=== PATIENT | female | born 1985 | race Caucasian/White ===

== ENCOUNTER → 2018-07-24 19:14 | Outpatient (CLI) | payer BC, SELFPAY ==
[2018-07-27 12:52] LABS: HPV Reflexed? NOT INDICATED
== END ==
PROVIDERS: Visit Provider Obstetrics & Gynecology
DX: Z12.4 Encounter for screening for malignant neoplasm of cervix (principal)
CPT/HCPCS: 88175; G0145

== ENCOUNTER → 2020-05-18 | Outpatient (CLI) | payer BC, SELFPAY ==
[2020-05-18 14:46] VITALS: BMI 30.1
[2020-05-18 19:00] LABS: Amphetamine Urine VISTA NEGATIVE (<1000 ng/mL); Barbiturate Urine VISTA NEGATIVE (< 200 ng/mL); Benzodiazepine Urine VISTA NEGATIVE (< 200 ng/mL); Cocaine Urine VISTA NEGATIVE (< 300 ng/mL); Ecstacy Urine VISTA NEGATIVE (< 500 ng/mL); Methadone Urine VISTA NEGATIVE (< 300 ng/mL); PCP Urine VISTA NEGATIVE (< 25 ng/mL); THC Urine VISTA NEGATIVE (< 50 ng/mL); Vista UDS pH Range 6
[2020-05-21 07:07] LABS: Chlamydia By Nucleic Acid AMP Negative (Negative)
[2020-05-21 08:25] LABS: Gonococcus By Nucleic Acid AMP Negative (Negative)
== END | disposition home or self-care (01) ==
LOC: LABSPEC 16:50
PROVIDERS: Referring Provider Obstetrics & Gynecology; Visit Provider Obstetrics & Gynecology
DX: Z34.90 Encounter for supervision of normal pregnancy, unspecified, unspecified trimester (principal)
CPT/HCPCS: 80307; 87086; 87088; 87491; 87591

== ENCOUNTER → 2020-06-08 16:18 | Outpatient (CLI) | payer BC, SELFPAY ==
[2020-05-18 14:46] VITALS: BMI 30.1
[2020-06-08 17:11] LABS: Absolute Neutrophil Count 6.4 X10^3/uL (2.0-7.7); Basophil# 0.06 X10^3/uL; Basophil% 0.6 % (0-1); Eosinophil# 0.19 X10^3/uL; Hematocrit 40.7 % (37-47); Hemoglobin 13.5 g/dL (12.0-15.0); Mean Corp Hgb Conc 33.2 g/dL (32-36); Mean Corpuscular Hgb 30.4 pg (27.0-32.0); Mean Corpuscular Volume 91.7 fL (81-99); Mean Platelet Vol. 10.4 fl (6.2-12.0); Monocyte# 0.81 X10^3/uL; Monocyte% 8.5 % (0-10); NRBC Flagged by Analyzer 0 % (0-5); Neutrophil # 6.36 X10^3/uL (2.7-7.7); Neutrophil % 66.6 % (47-70); Platelet Count 240 K/mm3 (150-450); RBC Distribution Width CV 11.7 % (11.6-14.6); RBC Distribution Width SD 39.2 fl (35.1-43.9); Red Blood Count 4.44 M/mm3 (4.2-5.4); White Blood Count 9.6 K/mm3 (4.4-11.0)
[2020-06-08 17:21] LABS: NATERA MAILED SPECIMEN
[2020-06-09 09:45] LABS: HIV - WCH Non-Reactive (Nonreactive); Hepatitis B Surface Antigen Non-Reactive (Nonreactive); Hepatitis C Antibody Non-Reactive (Nonreactive); Rubella IgG 6.2 IU/mL
[2020-06-11 04:30] LABS: Rapid Plasmin Reagin (RPR) NONREACTIVE (NONREACTIVE)
== END ==
PROVIDERS: Referring Provider Obstetrics & Gynecology; Visit Provider Obstetrics & Gynecology
DX: Z34.81 Encounter for supervision of other normal pregnancy, first trimester (principal)
CPT/HCPCS: 36415; 85025; 86592; 86703; 86762; 86803; 86850; 86900; 86901; 87340

== ENCOUNTER → 2020-08-06 15:27 | Outpatient (CLI) | payer BC, SELFPAY ==
[2020-07-16 09:00] VITALS: BMI 30.7
--- NOTE | 2020-08-06 15:31 | US_ITS ---
STUDY: SECOND AND THIRD TRIMESTER OBSTETRICAL ULTRASOUND REASON FOR EXAM: Female, 35 years old ANATOMY LMP: 03/18/2020 TECHNIQUE: Transabdominal TECHNICAL QUALITY: Adequate. PRIOR ULTRASOUND: None. FINDINGS: There is a single intrauterine fetus. The fetus is in a variable presentation. There is demonstrated cardiac activity with a heart rate of 166 bpm. There is a normal amniotic fluid volume. The largest amniotic fluid pocket measures 2.8 cm x 3.9 cm. The amniotic fluid index (EULALIO) is within normal limits. The placenta is posterior in location and is not low lying. There are Grade 1 placental changes. The cervix measures 4.2 cm in length. The bilateral adnexal regions are normal. There is a 3.1 cm x 3.3 cm x 2.1 cm fibroid along the anterior aspect of the body of the uterus. BIOMETRY: BPD: 4.81 cm: 20 weeks, 3 days HC: 18.8 cm: 21 weeks, 0 days AC: 15.69 cm: 20 weeks, 5 days FL: 3.41 cm: 20 weeks, 4 days CI: 75% FL/BPD: 71% FL/HC: FL/AC: 21.7% HC/AC: 1.2 age by current US: 20 weeks, 3 days. JAYDA by current US: 12/21/2020. Estimated weight: 376 grams, +/- 56 grams, 78 %. Age by LMP: 20 weeks, 1 days. JAYDA by LMP: 12/23/2020. ANATOMY: Gender: Male Cranium: Normal lateral ventricles. Normal choroid plexus. Normal cerebellum. Normal cisterna magna. Normal face, nose and lips. Chest: Normal 4-chamber heart. Abdomen/Pelvis: Normal diaphragm. Normal stomach. Normal abdominal wall. Normal cord insertion. Normal 3 vessel cord. Normal kidneys. Normal bladder. Spine: Normal cervical spine. Normal thoracic spine. Normal lumbar spine. Normal sacrum. Extremities: Normal bilateral upper extremities. Normal bilateral lower extremities. US/OB Anatomy Scan IMPRESSION: Single life intrauterine gestation with a mean gestational age of 20 weeks and 3 days. Electronically Signed: Amos Quiroz, at 9:08 EST , Service support ,
== END ==
PROVIDERS: Referring Provider Obstetrics & Gynecology; Visit Provider Obstetrics & Gynecology
DX: Z34.90 Encounter for supervision of normal pregnancy, unspecified, unspecified trimester (principal)
CPT/HCPCS: 76805

== ENCOUNTER → 2020-09-14 08:15 | Outpatient (CLI) | payer BC, SELFPAY ==
[2020-08-19 11:02] VITALS: BMI 31.6
[2020-09-14 08:53] LABS: Absolute Lymphocyte Count 1.38 X10^3/uL (0.83-4.51); Absolute Neutrophil Count 6.8 X10^3/uL (2.0-7.7); Basophil# 0.05 X10^3/uL; Basophil% 0.5 % (0-1); Eosinophil# 0.07 X10^3/uL; Eosinophils% 0.8 % (0-5); Hematocrit 38.4 % (37-47); Hemoglobin 13.4 g/dL (12.0-15.0); Lymphocyte # 1.38 X10^3/ul (4.0); Lymphocyte % 15.1 % (19-41); Mean Corp Hgb Conc 34.9 g/dL (32-36); Mean Corpuscular Hgb 32.1 pg (27.0-32.0); Mean Corpuscular Volume 92.1 fL (81-99); Monocyte# 0.74 X10^3/uL; Monocyte% 8.1 % (0-10); NRBC Flagged by Analyzer 0 % (0-5); Neutrophil # 6.84 X10^3/uL (2.7-7.7); Neutrophil % 75.2 % (47-70); Platelet Count 213 K/mm3 (150-450); RBC Distribution Width CV 12.2 % (11.6-14.6); RBC Distribution Width SD 41.4 fl (35.1-43.9); Red Blood Count 4.17 M/mm3 (4.2-5.4); White Blood Count 9.1 K/mm3 (4.4-11.0)
[2020-09-14 09:13] LABS: Glucose Challenge Gest 1H 50g 102 mg/dL (70-140)
== END ==
PROVIDERS: Nurse Practitioner Women's Health; Referring Provider Obstetrics & Gynecology; Visit Provider Obstetrics & Gynecology
DX: Z34.90 Encounter for supervision of normal pregnancy, unspecified, unspecified trimester (principal); Z13.1 Encounter for screening for diabetes mellitus
CPT/HCPCS: 36415; 82950; 85025

== ENCOUNTER → 2020-11-25 | Outpatient (CLI) | payer BC, SELFPAY ==
[2020-11-25 16:02] VITALS: BMI 35.1
== END | disposition home or self-care (01) ==
LOC: LABSPEC 16:55
PROVIDERS: Referring Provider Obstetrics & Gynecology; Visit Provider Obstetrics & Gynecology
DX: Z34.90 Encounter for supervision of normal pregnancy, unspecified, unspecified trimester (principal)
CPT/HCPCS: 87077; 87081; 87186

== ENCOUNTER 2020-12-29 08:00 | Inpatient (IN) | payer BC, SELFPAY ==
[2020-11-30 16:04] VITALS: BMI 35.3
[2020-12-28 11:55] VITALS: BMI 36.0
[2020-12-29] VITALS (40 sets, daily range): BP systolic 78–164; BP diastolic 41–92; PULSE 70–136; RESP 16; TEMP 35.9–37.9; O2SAT 92–100; BMI 35.9
[2020-12-29] MEDS: Lactated Ringers 1,000 ML 50 ML IV ×2 (08:40→11:10)
[2020-12-29] MEDS: Lactated Ringers 500 ML 999 ML IV ×2 (08:45→09:54)
[2020-12-29 08:46] LABS: Absolute Lymphocyte Count 0.81 X10^3/uL (0.83-4.51); Absolute Neutrophil Count 12.2 X10^3/uL (2.0-7.7); Basophil# 0.03 X10^3/uL; Basophil% 0.2 % (0-1); Hematocrit 39.3 % (37-47); Hemoglobin 13.6 g/dL (12.0-15.0); Lymphocyte # 0.81 X10^3/ul (4.0); Mean Corp Hgb Conc 34.6 g/dL (32-36); Mean Corpuscular Hgb 32.3 pg (27.0-32.0); Mean Corpuscular Volume 93.3 fL (81-99); Mean Platelet Vol. 10.7 fl (6.2-12.0); Monocyte% 2.2 % (0-10); NRBC Flagged by Analyzer 0 % (0-5); Neutrophil # 12.19 X10^3/uL (2.7-7.7); Neutrophil % 91.2 % (47-70); Platelet Count 203 K/mm3 (150-450); RBC Distribution Width CV 12.2 % (11.6-14.6); RBC Distribution Width SD 42.1 fl (35.1-43.9); Red Blood Count 4.21 M/mm3 (4.2-5.4); White Blood Count 13.4 K/mm3 (4.4-11.0)
[2020-12-29] MEDS: fentaNYL-bupivacaine (epidural) 100 ML BAG EPIDURAL ×3 (09:47→18:26)
--- NOTE | 2020-12-29 10:56 | PCM.HPOB.BLA ---
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 genetic low risk, anatomy normal (6) Rubella non-immune status, antepartum Status: Acute Comment: MMR PP (7) Supervision of normal Status: Acute Qualifiers: Comment: PRR JAYDA 12/23/20, boy Gaurav Asad History and Physical Date of Admission: 12/29/20 Intake Vital Signs 12/28/20 Height 6 ft 1 in 12/28/20 Weight: 273 lb 12/28/20 BMI 36.0 12/28/20 BP 124/82 H Intake Visit Reasons: 41 WK OB, pt coming at 11:40am Chief Complaint: est ob [employer] Supervisor Required: No Is patient in pain?: No Allergies Sulfa (Sulfonamide Antibiotics) Allergy (Mild, Verified 12/28/20 11:56) rash Medications cholecalciferol (vitamin D3) 25 mcg (1,000 unit) capsule 25 mcg PO DAILY 05/18/20 [History Confirmed 12/28/20] multivitamin 1 tab PO DAILY 05/18/20 [History Confirmed 12/28/20] mv-min-vit C 250 fh-brugfl-olbkw HCl-herb 124 12.5 mg chewable tablet mg PO 05/18/20 [History Confirmed 12/28/20] Last Menstral Period: 03/18/20 Zika: Zika virus screening: Negative : No PFSH PFSH Medical History Rosacea (Inactive) Surgical History S/P eye surgery (Resolved) S/P tonsillectomy (Resolved) Family History Grandmother Pancreatic cancer Myocardial infarction Grandfather CVA (cerebral vascular accident) Myocardial infarction Social History (Updated 12/28/20 @ 12:[address] Ashia Gonzales MD) Smoking Status: Never smoker alcohol intake: never substance use type: does not use caffeine: No what type of physical activity do you participate in: walking frequency: 3-4 times per week seatbelt use: always do you feel safe at home: Yes additional social history: - [employer] Patient works at [employer] Pregancy History 1 Elective abortions Hx Para Spontaneous abortions Hx # Term Pregnancies Ectopic pregnancies Hx # Pregnancies Multiple births # of living children HPI 41 WK OB, pt coming at 11:40am: Details: JAGDEEP MURPHY is a 35 year old who presents IAL 5 cm dilated, epidural in and pcn started. OB Visit JAYDA Calculator Estimated Delivery Date Method Current WG Current Estimate 12/23/20 LMP (Certain) 40w 5d Other Estimates 12/24/20 Ultrasound #1 40w 4d Expected Delivery Route/Plan Labor Preferences- CB/BF classes: yes labor support person: Asad labor intervention preferences: tub pain management options preferred: epidural cut cord/dad catch: cord : yes PP control planned:NFP discussed possible routes of delivery and associated risks: discussed possible delivery modalities and possible indications for each including R/B/A of , VAVD, FAVD, and CS. questions answered. special requests: [] Specific Issue/Plans flu vaccine: given tdap vaccine: given rhogam: na LARC form signed: yes movement and labor precautions reviewed. Problem list reviewed and updated with the most current plan of care details and appropriate orders placed. Relevant counseling for the gestational age provided. Continue routine care and follow up unless otherwise noted in visit notes/problem list details Initial Weight: Not Recorded Date EGA Weight BP Urine Prot Glucose FHR FuHt Pres Dilation Effaced St Visit Note 05/18/20 8w 5d 228 lb 6 oz 120/74 160 SM- CRL- SM- CRL- 2cm 06/16/20 12w 6d 232 lb 124/80 Negative Negative 160 MH-no VB, LOF. Nausea improved. Brief US confirmed active IUP. Flu vaccine. Anatomy US ordered. NIPT pending. 07/15/20 17w 0d 233 lb 114/70 Negative Negative 160 GP - no cramping or bleeding. Anatomy scan ordered today. 08/19/20 22w 0d 239 lb 8 oz 114/60 Negative Negative 154 MH-NO VB, LOF. Good FM. 09/14/20 25w 5d 243 lb 116/68 Negative Negative 150 27 GP - no LOF, VB, DFM, ctx. 1h GCT and CBC normal. 09/29/20 27w 6d 251 lb 120/80 Negative Negative 140 28 SM- no vb lof good fm no regular ctx tdap 10/13/20 29w 6d 255 lb 4 oz 116/60 Negative Negative 142 29 MH-No VB, LOF. Good FM. Larc. 10/26/20 31w 5d 256 lb 130/82 Negative Negative 145 32 Sm- no vb lof good fm no regular ctx some right hip and back pain 11/09/20 33w 5d 261 lb 4 oz 112/82 Negative Negative 155 33 GP - no LOF, VB, DFM, ctx. Denies complaints. 11/25/20 36w 0d 266 lb 106/60 Negative Negative 145 36 Cephalic 1 50 -2 GP - no LOF, VB, DFM, ctx. GBS done today. Discussed routes of delivery. 11/30/20 36w 5d 268 lb 120/68 Negative Negative 145 37 Cephalic SM- no vb lof good fm no regular ctx 12/07/20 37w 5d 268 lb 120/72 Negative Negative 150 37 Cephalic 1 50 -2 GP - no LOF, VB, DFM, ctx. Denies complaints. 12/14/20 38w 5d 267 lb 122/76 Negative Negative 145 38 Cephalic 1 SM- no vb lof good fm no regular ctx 12/21/20 39w 5d 273 lb 4 oz 122/70 Negative Negative 150 39 Cephalic GP - no LOF, VB, DFM, ctx. Denies complaints. 12/28/20 40w 5d 273 lb 124/82 Negative Negative 140 41 Cephalic 3 70 -1 SM- no vb lof good fm plan IOL 7 am if no spontnaoues labor ACOG First Trimester First Trimester: Desire for , Alcohol, Tobacco Cessation, Illicit/Recreational Drug/Substance Use, Intimate Partner Violence, Barriers to care, Unstable Housing, Communication Barriers, Environmental/Work Hazards, Anticipated Course of Care, Toxoplasmosis Precations, Use of Any medications, Sexual activity, Exercise, Dental Care, Sauna/Hot tub use, Seat Belt use, Childbirth classes/Hospital facilities, , Travel, Indications for US and Screening for Aneuploidy Second Trimester Second Trimester: Signs and Symptoms of Labor, Selecting a care provider, Reproductive Life Planning, Care Planning, Depression/Anxiety and Intimate Partner Violence; discussed Tobacco Cessation Diagnostics Diagnostics Diagnostics Glucose 1 Hr 50 gm 102 mg/dL (70-140) 09/14/20 Hgb 13.4 g/dL (12.0-15.0) 09/14/20 Hct 38.4 % (37-47) 09/14/20 Details: HIV: Urine Culture: Sequential Screen: NIPT Screen: ROS Const Reports system reviewed and no additional complaints, except as docu Card Reports system reviewed and no additional complaints, except as docu Resp Reports system reviewed and no additional complaints, except as docu GI Reports system reviewed and no additional complaints, except as docu, Reports nausea Reports system reviewed and no additional complaints, except as docu Musc Reports system reviewed and no additional complaints, except as docu Exam Const General: cooperative, healthy appearing, comfortable, anxious HENMT Head: normal to inspection Nose: external nose normal Face and sinus: normal facial exam Neck Neck: normal visual inspection, full ROM, no lymphadenopathy Thyroid: thyroid normal Chest Chest palpation & inspection: normal inspection of the chest Resp Effort & Inspection: normal respiratory effort GI Inspection: normal to inspection Palpation: soft, other (gravid uterus) Other: vertex and appropriate size for gestational age Other: Cervical Exam: Extrem General: pedal edema Results POC Urinalysis 2 Dip (Clinic) Office Urine Glucose Negative Last Edit by Meri Mistry on 12/28/20 12:00 Office Urine Protein Negative Last Edit by Meri Mistry on 12/28/20 12:00 Assessment & Plan Problems 1. Positive GBS test B95.1 pcn in labor 2. 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 Z34.90 carrier, genetic, and ntd screening discussed. genetic low risk, anatomy normal 5. Supervision of normal Z34.90 PRR JAYDA 12/23/20, boy Gaurav Asad Plan Patient presents IAL plan management for arom clear fluid Pain management: plans epidural. GBS positive- pcn. Management of any complications: none I have reviewed the [facility] and made any clinically relevant updates. 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
[2020-12-29] MEDS: Oxytocin 30 units/NS 500 ml 30 UNITS/500 ML IV.SOLN IV (13:18)
[2020-12-29] MEDS: Lactated Ringers 1,000 ML 200 ML IV (16:00)
--- NOTE | 2020-12-29 19:11 | PCM.OPRPT ---
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 genetic low risk, anatomy normal (6) Rubella non-immune status, antepartum Status: Acute Comment: MMR PP (7) Supervision of normal Status: Acute Qualifiers: Comment: PRR JAYDA 12/23/20, boy Gaurav Asad Vaginal Delivery Maternal Presentation: Active Labor at 40 weeks 6 days in active labor Amniotic Membrane Rupture Type: Artificial Amniotic Fluid Description: Clear Final JAYDA: 12/23/20 Gestational age: 41 Weeks and 0 Days Date of Procedure: 12/29/20 Pre-Operative Diagnosis: In active labor Post-Operative Diagnosis: Same Surgery/ Procedure Performed: Spontaneous Vaginal Delivery Type of Anesthesia: Epidural Description of Procedure: Patient began pushing and delivered the head in the KAMAR presentation. The head was delivered atraumatically. The anterior and posterior shoulders delivered without complication followed by the rest of the infant and the infant was placed on the maternal abdomen. Delayed cord clamping was employed for approximately 60 seconds. Cord was clamped and cut and gentle traction was applied to the cord and the placenta delivered spontaneously immediately following it was noted to be intact with three-vessel cord. The perineum and vagina were inspected and noted to have 1/3 degree perineal laceration which was repaired in the usual fashion with 2-0 PDS and 3-0 Vicryl Rapide. EBL was 400 cc. Patient and infant tolerated delivery well. Presentation: KAMAR Placental Delivery Description: Spontaneous Placenta Disposition: [facility] Cord Vessel Description: 3 Vessels Cord Entanglement: None Estimated Blood Loss: 100 Infant A gender: Male Laceration: Perineal Extension/lac, 3rd degree Medications given after delivery: IV Pitocin Complications: None Multi Select Codes - Urinary/Genital Urinary/Genital CPT Codes: 02079 Vaginal Delivery [facility]
[2020-12-29] MEDS: 0.9% Saline Lock 10 ML Syringe IV (19:37)
[2020-12-29] MEDS: Ondansetron 4 MG/2 ML Vial IV (19:37)
[2020-12-29] MEDS: Oxytocin 30 units/NS 500 ml 30 UNITS/500 ML IV.SOLN 334 UNITS IV (19:58)
[2020-12-29] MEDS: Lactated Ringers 1,000 ML 999 ML IV ×2 (21:06→22:30)
[2020-12-29 21:24] LABS: Absolute Lymphocyte Count 0.72 X10^3/uL (0.83-4.51); Absolute Neutrophil Count 18.8 X10^3/uL (2.0-7.7); Basophil# 0.04 X10^3/uL; Basophil% 0.2 % (0-1); Eosinophils% 1.4 % (0-5); Hematocrit 31.8 % (37-47); Hemoglobin 10.8 g/dL (12.0-15.0); Lymphocyte # 0.72 X10^3/ul (4.0); Lymphocyte % 3.4 % (19-41); Mean Corpuscular Hgb 32.1 pg (27.0-32.0); Mean Corpuscular Volume 94.6 fL (81-99); Mean Platelet Vol. 10.9 fl (6.2-12.0); Monocyte# 1.23 X10^3/uL; Monocyte% 5.8 % (0-10); NRBC Flagged by Analyzer 0 % (0-5); Neutrophil # 18.81 X10^3/uL (2.7-7.7); Neutrophil % 88.6 % (47-70); Platelet Count 199 K/mm3 (150-450); RBC Distribution Width CV 12.2 % (11.6-14.6); RBC Distribution Width SD 42.2 fl (35.1-43.9); Red Blood Count 3.36 M/mm3 (4.2-5.4); White Blood Count 21.2 K/mm3 (4.4-11.0)
[2020-12-29 22:05] LABS: Lactic Acid 3.8 mmol/L (0.4-1.9)
[2020-12-30 01:21] LABS: Reflex Lactate? Y
--- NOTE | 2020-12-30 01:25 | PCM.PN.BLA ---
Progress Note patient had hypotension and tachycardia - ordered CBC and lactic acid, which are elevated- will provide fluid resuscitation and repeat lactic acid, afebrile and patient is asymptomatic, start antibiotics if shows signs of persistent sepsis STROKE Vital Signs/Narrative: Vital Signs Temp Pulse Resp BP BP Pulse Ox 12/29/20 23:53 97.5 F L 114 H 16 100/59 L 97 12/29/20 23:33 97.5 F L 118 H 100/59 L 97 12/29/20 22:50 98.1 F 12/29/20 22:14 114 H 90/54 L 12/29/20 21:59 116 H 92/51 L 12/29/20 21:47 118 H 91/50 L 12/29/20 21:29 133 H 86/54 L 12/29/20 21:26 130 H 84/53 L
[2020-12-30] MEDS: 0.9% Normal Saline 1,000 ML 999 ML IV ×2 (01:36→02:45)
[2020-12-30 04:30] VITALS: BP 118/59; PULSE 81; RESP 16; TEMP 36.3; O2SAT 100
[2020-12-30] MEDS: Naproxen 250 MG Tablet 500 MG PO ×2 (04:52→18:27)
[2020-12-30 05:08] LABS: Absolute Lymphocyte Count 1.15 X10^3/uL (0.83-4.51); Absolute Neutrophil Count 15.2 X10^3/uL (2.0-7.7); Basophil# 0.03 X10^3/uL; Basophil% 0.2 % (0-1); Eosinophil# 0.46 X10^3/uL; Eosinophils% 2.5 % (0-5); Hematocrit 26.2 % (37-47); Hemoglobin 8.7 g/dL (12.0-15.0); Lymphocyte # 1.15 X10^3/ul (4.0); Lymphocyte % 6.3 % (19-41); Mean Corp Hgb Conc 33.2 g/dL (32-36); Mean Corpuscular Hgb 32.1 pg (27.0-32.0); Mean Corpuscular Volume 96.7 fL (81-99); Mean Platelet Vol. 10.6 fl (6.2-12.0); Monocyte# 1.41 X10^3/uL; Monocyte% 7.7 % (0-10); NRBC Flagged by Analyzer 0 % (0-5); Neutrophil # 15.23 X10^3/uL (2.7-7.7); Neutrophil % 82.7 % (47-70); Platelet Count 159 K/mm3 (150-450); RBC Distribution Width CV 12.4 % (11.6-14.6); Red Blood Count 2.71 M/mm3 (4.2-5.4); White Blood Count 18.4 K/mm3 (4.4-11.0)
[2020-12-30 05:32] LABS: Lactic Acid 1.4 mmol/L (0.4-1.9)
--- NOTE | 2020-12-30 07:50 | PCM.PN.OB ---
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 genetic low risk, anatomy normal Supervision of normal (Acute) PRR JAYDA 12/23/20, boy Gaurav Asad Subjective: Patient doing well without complaints. Tolerating PO. Ambulating and voiding without difficulty. Breast feeding well. Denies chest pain, shortness of breath, calf pain/swelling, fevers, chills, lightheadedness. Vitals stable, labs improving. - Physical Exam Vitals/I&O's: Vital Signs Temp Pulse Resp BP Pulse Ox 97.4 F L 81 16 118/59 L 100 12/30/20 04:30 12/30/20 04:30 12/30/20 04:30 12/30/20 04:30 12/30/20 04:30 Oxygen Delivery Method Room Air Weight: 272 lb Body Mass Index (BMI) 35.9 Intake and Output for Last 24 Hours 12/28/20 12/29/20 12/30/20 23:59 23:59 23:59 Intake Total 4868.63 / 4868.63 2000 / 2000 Output Total 1500 / 1500 600 / 600 Balance 3368.63 / 3368.63 1400 / 1400 General: Alert, Oriented x3 Abdomen: Soft, Non Tender, Non-Distended, - - FF below U Microbiology Past 72 Hours 12/29/20 08:55 Mucosa - Nose SARS-CoV-2 Antigen (Rapid) - Final Laboratory Results 12/29/20 08:35: WBC 13.4 H, RBC 4.21, Hgb 13.6, Hct 39.3, MCV 93.3, MCH 32.3 H, MCHC 34.6, RDW Std Deviation 42.1, RDW Coeff of Nic 12.2, Plt Count 203, MPV 10.7, Immature Gran % (Auto) 0.400, Neut % (Auto) 91.2 H, Lymph % (Auto) 6.0 L, [place] % (Auto) 2.2, Eos % (Auto) 0.0, Baso % (Auto) 0.2, Absolute Neuts (auto) 12.2 H, Absolute Lymphs (auto) 0.81 L, Nucleated RBC % 0 12/29/20 08:35: Blood Type O POSITIVE, Antibody Screen NEGATIVE 12/29/20 21:10: WBC 21.2 H, RBC 3.36 L, Hgb 10.8 L, Hct 31.8 L, MCV 94.6, MCH 32.1 H, MCHC 34.0, RDW Std Deviation 42.2, RDW Coeff of Nic 12.2, Plt Count 199, MPV 10.9, Immature Gran % (Auto) 0.600, Neut % (Auto) 88.6 H, Lymph % (Auto) 3.4 L, [place] % (Auto) 5.8, Eos % (Auto) 1.4, Baso % (Auto) 0.2, Absolute Neuts (auto) 18.8 H, Absolute Lymphs (auto) 0.72 L, Nucleated RBC % 0 12/29/20 21:10: Lactic Acid 3.8 H* 12/30/20 05:00: Lactic Acid 1.4 12/30/20 05:00: WBC 18.4 H, RBC 2.71 L, Hgb 8.7 L, Hct 26.2 L, MCV 96.7, MCH 32.1 H, MCHC 33.2, RDW Std Deviation 43.0, RDW Coeff of Nic 12.4, Plt Count 159, MPV 10.6, Immature Gran % (Auto) 0.600, Neut % (Auto) 82.7 H, Lymph % (Auto) 6.3 L, [place] % (Auto) 7.7, Eos % (Auto) 2.5, Baso % (Auto) 0.2, Absolute Neuts (auto) 15.2 H, Absolute Lymphs (auto) 1.15, Nucleated RBC % 0 Current Medications Acetaminophen (Acetaminophen 500 Mg Tablet) 1,000 mg PO Q8H PRN PRN PRN Reason: Pain Score 1-3 Bisacodyl (Bisacodyl 10 Mg Suppository) 10 mg RC UD PRN PRN Reason: If no BM Dibucaine (Dibucaine 30 Gm Tube) 1 applic TOPICAL TID PRN PRN; Protocol PRN Reason: Discomfort Hydrocortisone (Hydrocortisone 2.5% Crm) 1 applic TOPICAL TID PRN PRN; Protocol PRN Reason: Discomfort Measles/Mumps/Rubella Vaccine Live (Measles,Mumps&Rubella Vaccine 0.5 Ml Vial) 0.5 ml SC .ONCE ONE Stop: 12/30/20 10:01 Methylergonovine Maleate (Methylergonovine 0.2 Mg/Ml Ampul) 0.2 mg IM X1 PRN PRN Reason: Excess bleeding/uterine atony Naproxen (Naproxen 250 Mg Tablet) 500 mg PO Q8H PRN PRN PRN Reason: Pain Score 1-3 Last Admin: 12/30/20 04:52 Dose: 500 mg Documented by: Ondansetron HCl (Ondansetron 4 Mg/2 Ml Vial) 4 mg IV Q4H PRN PRN PRN Reason: Nausea Oxycodone HCl (Oxycodone 5 Mg Tablet) 5 - 10 mg PO Q4H PRN PRN PRN Reason: Pain Score 4-10 Senna/Docusate Sodium (Senna/Docusate Sodium 1 Tablet) 1 - 2 tablet PO DAILY PRN PRN PRN Reason: Constipation Simethicone (Simethicone 80 Mg Tablet) 80 mg PO PCHS PRN PRN Reason: Indigestion/Stomach pain Sodium Chloride (0.9% Saline Lock 10 Ml Syringe) 5 - 15 ml IV UD PRN PRN Reason: SALINE FLUSH Medical Necessity - Tobacco Use Smoking Status: Never smoker Assessment/Plan All Active Problems (Last Reviewed 12/28/20 @ 11:56 by Meri Mistry) Active labor at term (Acute) Positive GBS test (Acute) 36 weeks gestation of (Acute) Rubella non-immune status, antepartum (Acute) Albinism (Acute) (Acute) Supervision of normal (Acute) s/p PPD #1 1. routine post delivery care 2. breast feeding- support given 3. rh positive 4. rubella non immune 5. Repeat CBC this AM 0900
[2020-12-30 08:48] VITALS: BP 117/66; PULSE 83; RESP 18; TEMP 36.2
[2020-12-30 09:09] LABS: Hematocrit 24.3 % (37-47); Hemoglobin 8.2 g/dL (12.0-15.0); Mean Corp Hgb Conc 33.7 g/dL (32-36); Mean Corpuscular Hgb 32.4 pg (27.0-32.0); Mean Platelet Vol. 10.8 fl (6.2-12.0); Platelet Count 142 K/mm3 (150-450); RBC Distribution Width CV 12.6 % (11.6-14.6); RBC Distribution Width SD 43.9 fl (35.1-43.9); Red Blood Count 2.53 M/mm3 (4.2-5.4); White Blood Count 14.8 K/mm3 (4.4-11.0)
[2020-12-30 12:30] VITALS: BP 121/73; PULSE 80; RESP 18; TEMP 35.7
[2020-12-30 16:26] VITALS: BP 111/71; PULSE 94; RESP 16; TEMP 36.1
[2020-12-30 20:33] VITALS: BP 116/71; PULSE 94; RESP 16; TEMP 36.2
[2020-12-31 01:59] VITALS: BP 112/59; PULSE 96; RESP 16; TEMP 36.2
--- NOTE | 2020-12-31 02:49 | DCINST_ITS ---
Discharge Diet: No Restrictions Discharge Activity: Return to Normal Activity, May not drive while taking narcotic pain medications., May Shower May resume sexual activity in: 4-6 weeks Call your doctor if your incision/area has: Continuous Slow Oozing, Sudden Increased Bleeding, Increased Pain/ Swelling, Increased Redness, Foul Smelling Discharge Additional Instructions: If you experience any of the following, contact your healthcare provider. * Bleeding that soaks a pad every hour for 2 hours * Fever 100.4 or higher * Unrelieved incision or abdominal pain * Swelling, redness, discharge or bleeding from your incision or episiotomy site * Your incision begins to separate * Problems urinating (including inability to urinate or burning while urinating). * Visual changes * Severe headache * Flu-like symptoms * Pain or redness in one of both of your breasts * Pain, warmth, tenderness or swelling in your legs, especially the calf area * Frequent nausea and vomiting * Symptoms of depression or anxiety If you experience any of the following, call 911 or go to the nearest Emergency Room. * Chest pain * Problems breathing * Seizure activity * Partial or complete paralysis of a body part, slurred speech, weakness or drooping of the face, or a sudden inability to walk or hold your balance Allergies/Adverse Reactions: Allergies Sulfa (Sulfonamide Antibiotics) Allergy (Mild, Verified 12/28/20 11:56) rash Medications to take at Discharge cholecalciferol (vitamin D3) 25 mcg (1,000 unit) capsule 25 mcg PO DAILY 05/18/20 multivitamin 1 tab PO DAILY 05/18/20 mv-min-vit C 250 wm-dwgeos-vnmuw HCl-herb 124 12.5 mg chewable tablet 250 mg PO DAILY 05/18/20 Naproxen [Naprosyn] 250 - 500 mg PO Q8H PRN PRN #30 tab 12/31/20 The following prescriptions were given: Naproxen [Naprosyn] 250 - 500 mg PO Q8H PRN PRN #30 tab PRN Reason: MILD PAIN Transmission Status: Pending to [facility] Please Follow Up With: Ashia Gonzales MD - [phone] When: Call to make an appointment with your doctor in 6 weeks. If you had elevated Blood pressure or 4th degree laceration you will need to be seen in 2 weeks. Primary Care Physician: Care Physician,No Primary [Primary Care Provider] - Test Results: Test results from this visit will be discussed in further detail at your follow- up appointment, if applicable.
--- NOTE | 2020-12-31 02:49 | PCM.DCVAG ---
Discharge Diet: No Restrictions Discharge Activity: Return to Normal Activity, May not drive while taking narcotic pain medications., May Shower May resume sexual activity in: 4-6 weeks Call your doctor if your incision/area has: Continuous Slow Oozing, Sudden Increased Bleeding, Increased Pain/ Swelling, Increased Redness, Foul Smelling Discharge Additional Instructions: If you experience any of the following, contact your healthcare provider. Bleeding that soaks a pad every hour for 2 hours Fever 100.4 or higher Unrelieved incision or abdominal pain Swelling, redness, discharge or bleeding from your incision or episiotomy site Your incision begins to separate Problems urinating (including inability to urinate or burning while urinating). Visual changes Severe headache Flu-like symptoms Pain or redness in one of both of your breasts Pain, warmth, tenderness or swelling in your legs, especially the calf area Frequent nausea and vomiting Symptoms of depression or anxiety If you experience any of the following, call 911 or go to the nearest Emergency Room. Chest pain Problems breathing Seizure activity Partial or complete paralysis of a body part, slurred speech, weakness or drooping of the face, or a sudden inability to walk or hold your balance Allergies/Adverse Reactions: Allergies Sulfa (Sulfonamide Antibiotics) Allergy (Mild, Verified 12/28/20 11:56) rash Medications to take at Discharge cholecalciferol (vitamin D3) 25 mcg (1,000 unit) capsule 25 mcg PO DAILY 05/18/20 multivitamin 1 tab PO DAILY 05/18/20 mv-min-vit C 250 os-jhaufv-ersux HCl-herb 124 12.5 mg chewable tablet 250 mg PO DAILY 05/18/20 Naproxen [Naprosyn] 250 - 500 mg PO Q8H PRN PRN #30 tab 12/31/20 The following prescriptions were given: Naproxen [Naprosyn] 250 - 500 mg PO Q8H PRN PRN #30 tab PRN Reason: MILD PAIN Transmission Status: Pending to [facility] Please Follow Up With: Ashia Gonzales MD - [phone] When: Call to make an appointment with your doctor in 6 weeks. If you had elevated Blood pressure or 4th degree laceration you will need to be seen in 2 weeks. Primary Care Physician: Care Physician,No Primary [Primary Care Provider] - Test Results: Test results from this visit will be discussed in further detail at your follow-up appointment, if applicable.
--- NOTE | 2020-12-31 08:12 | PCM.PN.OB ---
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 genetic low risk, anatomy normal Supervision of normal (Acute) PRR JAYDA 12/23/20, boy Gaurav Asad Subjective: Patient doing well without complaints. Tolerating PO. Ambulating and voiding without difficulty. feeding well. Denies chest pain, shortness of breath, calf pain/swelling, fevers, chills, lightheadedness. - Physical Exam Vitals/I&O's: Vital Signs Temp Pulse Resp BP Pulse Ox 97.1 F L 96 16 112/59 L 100 12/31/20 01:59 12/31/20 01:59 12/31/20 01:59 12/31/20 01:59 12/30/20 04:30 Oxygen Delivery Method Room Air Weight: 272 lb Body Mass Index (BMI) 35.9 Intake and Output for Last 24 Hours 12/29/20 12/30/20 12/31/20 23:59 23:59 23:59 Intake Total 4868.63 / 4868.63 1999 / 2000 Output Total 1500 / 1500 600 / 600 Balance 3368.63 / 3368.63 1400 / 1400 General: Alert, Oriented x3 Microbiology Past 72 Hours 12/29/20 08:55 Mucosa - Nose SARS-CoV-2 Antigen (Rapid) - Final Laboratory Results 12/30/20 08:55: WBC 14.8 H, RBC 2.53 L, Hgb 8.2 L, Hct 24.3 L, MCV 96.0, MCH 32.4 H, MCHC 33.7, RDW Std Deviation 43.9, RDW Coeff of Nic 12.6, Plt Count 142 L, MPV 10.8 Current Medications Acetaminophen (Acetaminophen 500 Mg Tablet) 1,000 mg PO Q8H PRN PRN PRN Reason: Pain Score 1-3 Bisacodyl (Bisacodyl 10 Mg Suppository) 10 mg RC UD PRN PRN Reason: If no BM Dibucaine (Dibucaine 30 Gm Tube) 1 applic TOPICAL TID PRN PRN; Protocol PRN Reason: Discomfort Hydrocortisone (Hydrocortisone 2.5% Crm) 1 applic TOPICAL TID PRN PRN; Protocol PRN Reason: Discomfort Methylergonovine Maleate (Methylergonovine 0.2 Mg/Ml Ampul) 0.2 mg IM X1 PRN PRN Reason: Excess bleeding/uterine atony Naproxen (Naproxen 250 Mg Tablet) 500 mg PO Q8H PRN PRN PRN Reason: Pain Score 1-3 Last Admin: 12/30/20 18:27 Dose: 500 mg Documented by: Ondansetron HCl (Ondansetron 4 Mg/2 Ml Vial) 4 mg IV Q4H PRN PRN PRN Reason: Nausea Oxycodone HCl (Oxycodone 5 Mg Tablet) 5 - 10 mg PO Q4H PRN PRN PRN Reason: Pain Score 4-10 Senna/Docusate Sodium (Senna/Docusate Sodium 1 Tablet) 1 - 2 tablet PO DAILY PRN PRN PRN Reason: Constipation Simethicone (Simethicone 80 Mg Tablet) 80 mg PO PCHS PRN PRN Reason: Indigestion/Stomach pain Sodium Chloride (0.9% Saline Lock 10 Ml Syringe) 5 - 15 ml IV UD PRN PRN Reason: SALINE FLUSH Throat Lozenges (Benzocaine/Lanolin/Aloe Vera 1 Applic Each) 1 applic TOPICAL 4X/DAY PRN PRN; Protocol PRN Reason: Pain Score 1-10 Last Admin: 12/30/20 19:08 Dose: 1 applic Documented by: Medical Necessity - Tobacco Use Smoking Status: Never smoker Assessment/Plan All Active Problems (Last Reviewed 12/28/20 @ 11:56 by Meri Mistry) Active labor at term (Acute) Positive GBS test (Acute) 36 weeks gestation of (Acute) Rubella non-immune status, antepartum (Acute) Albinism (Acute) (Acute) Supervision of normal (Acute) s/p PPD # 2 1. routine post delivery care 2. breast feeding- support given 3. rh positive 4. rubella non immune- give MMR
[2020-12-31 09:11] VITALS: BP 115/77; PULSE 97; RESP 16; TEMP 36; O2SAT 96
[2020-12-31] MEDS: Naproxen 250 MG Tablet 500 MG PO (09:21)
[2020-12-31] MEDS: Acetaminophen 500 MG Tablet 1000 MG PO (09:22)
== END 2020-12-31 12:20 | disposition home or self-care (01) | DRG 768 ==
PROVIDERS: Admitting Provider Obstetrics & Gynecology; Referring Provider Obstetrics & Gynecology; Visit Provider Obstetrics & Gynecology
DX: O98.82 Other maternal infectious and parasitic diseases complicating childbirth (principal); Z37.0 Single live birth; O70.20 Third degree perineal laceration during delivery, unspecified; O99.43 Diseases of the circulatory system complicating the puerperium; B95.1 Streptococcus, group B, as the cause of diseases classified elsewhere; Z3A.41 41 weeks gestation of pregnancy; I95.9 Hypotension, unspecified; R00.0 Tachycardia, unspecified
CPT/HCPCS: 59025; 59050; 83605; 85025; 85027; 86850; 86900; 86901; 87426; 99218; J7030; J7120; A4216; G0378; J2405

== ENCOUNTER 2021-01-04 16:05 | Outpatient (CLI) | payer BC, SELFPAY ==
[2021-01-04] VITALS (24 sets, daily range): BP systolic 126–144; BP diastolic 65–79; PULSE 46–121; RESP 16–18; TEMP 35.9–37.2; O2SAT 97–99; BMI 35.1; BMI 35.2
--- NOTE | 2021-01-04 16:18 | EKG12_ITS ---
Test Reason : ROUTINE Blood Pressure : / mmHG Vent. Rate : 075 BPM Atrial Rate : 075 BPM P-R Int : 134 ms QRS Dur : 076 ms QT Int : 376 ms P-R-T Axes : 005 041 001 degrees QTc Int : 419 ms Sinus rhythm with sinus arrhythmia with Fusion complexes Low voltage QRS Borderline ECG Confirmed by LIDYA GAO, JAYJAY ([id number]), hadoop engineer LANCE MARADIAGA ([id number]) on 01/07/2021 11:31:54 AM Referred By: Ashia Gonzales Confirmed By:JAYJAY BOSE MD
[2021-01-04] MEDS: Lactated Ringers 1,000 ML 999 ML IV (16:44)
[2021-01-04 16:59] LABS: Hematocrit 23.3 % (37-47); Hemoglobin 7.6 g/dL (12.0-15.0); Mean Corp Hgb Conc 32.6 g/dL (32-36); Mean Corpuscular Hgb 32.5 pg (27.0-32.0); Mean Corpuscular Volume 99.6 fL (81-99); Platelet Count 228 K/mm3 (150-450); RBC Distribution Width CV 12.5 % (11.6-14.6); RBC Distribution Width SD 44.9 fl (35.1-43.9); Red Blood Count 2.34 M/mm3 (4.2-5.4); White Blood Count 6.9 K/mm3 (4.4-11.0)
--- NOTE | 2021-01-04 17:05 | OB.TRI.NOTE ---
- Problem List (1) Headache in , Status: Acute History of Present Illness Date of Service: 01/04/21 Was patient seen by the physician?: Yes Reason For Visit: R/O History of Present Illness: 35 yo several days with current headache and chest heaviness denies any palpitations or shortness of breath. She was anemic when she left the day but upon evaluation orthostatic blood pressure testing is negative today. Allergies Sulfa (Sulfonamide Antibiotics) Allergy (Mild, Verified 01/04/21 15:42) rash - Pertinent Past Medical History Medical History: Past Medical History (Last Reviewed 01/04/21 @ 15:43 by Valeria Hull) Rosacea (Inactive) Surgical History: Past Surgical History (Last Reviewed 01/04/21 @ 15:43 by Valeria Hull) S/P eye surgery left 90's right 2004, 90's S/P tonsillectomy Laboratory Studies: Laboratory Tests 01/04/21 Range/Units 16:44 WBC 6.9 (4.4-11.0) K/mm3 RBC 2.34 L (4.2-5.4) M/mm3 Hgb 7.6 L (12.0-15.0) g/dL Hct 23.3 L (37-47) % MCV 99.6 H (81-99) fL MCH 32.5 H (27.0-32.0) pg MCHC 32.6 (32-36) g/dL RDW Std Deviation 44.9 H (35.1-43.9) fl RDW Coeff of Nic 12.5 (11.6-14.6) % Plt Count 228 (150-450) K/mm3 MPV 10.0 (6.2-12.0) fl Review of Systems Constitutional: Reports: Malaise. Denies: Fever Eyes: Denies: Blurred vision HEENT: Reports: Head Aches Cardiovascular: Reports: Chest Pressure. Denies: Chest Pain Respiratory: Denies: Cough, Shortness of Breath Gastrointestinal: Denies: Abdominal Pain Physical Exam Vitals: Vital Signs Pulse BP Pulse Ox 64 131/79 H 97 01/04/21 16:51 01/04/21 16:51 01/04/21 16:22 General: Alert, Oriented x3, Cooperative HEENT: Atraumatic, Normocephalic Cardiovascular: Regular rate, Regular Rhythm, Normal S1, Normal S2, No murmurs Lungs: Clear to auscultation, Normal air movement Abdomen: Soft, Non Tender, Non-Distended Impression/Plan 35-year-old with headache Initial blood pressure elevated in the office and all subsequent blood pressures within normal limits. Initial liver enzyme mildly elevated, patient monitored and repeated in 4 hours and labs were decreasing. EKG within normal limits. Chest pressure improved and orthostatics negative. IV Venofer given for anemia. Headache improved with medication. Stable for discharge to home follow-up in the office reviewed precautions for preeclampsia and anemia Multi Select Codes - Visit Charges Office Visit/Consults: 99631 OV L3 Est
[2021-01-04] MEDS: Acetaminophen/Butalbital/Caffe 1 Tablet 2 TABLET PO (17:09)
[2021-01-04 17:17] LABS: Protein, Urine (Random) 14.1 mg/dL (<11.9); Protein:Creat Ratio 388 mg/g CRE (0-200)
[2021-01-04 17:37] LABS: ALB/GLOB Ratio 0.7 RATIO (0.9-2.4); AST(SGOT) 36 U/L (15-37); Alanine Aminotransfer ALT/SGPT 80 U/L (13-56); Albumin, Serum 2.6 g/dL (3.2-5.0); Alkaline Phosphatase 110 U/L (45-117); Anion Gap 6 (5-15); BUN 13 mg/dL (7-18); BUN/Creat Ratio 17.9 RATIO (10-20); Calcium,Total 8.5 mg/dL (8.5-10.1); Chloride 110 mmol/L (98-107); Creatinine, Serum 0.73 mg/dL (0.55-1.02); EST Glomerular Filtration Rate 97 mL/min (>60); Est Glom Filt Rate - Afr Amer 118 mL/min (>60); Estimated Creatinine Clearance 126.49 ml/min; Globulin 3.8 g/dL (2.2-4.2); Glucose 86 mg/dL (74-106); Potassium 4.1 mmol/L (3.5-5.1); Protein, Total 6.4 g/dL (6.4-8.2); Sodium Level 141 mmol/L (136-145)
--- NOTE | 2021-01-04 18:15 | NURSING ---
Dr Gonzales notified and aware of lab results at 1754. New orders given and ordered. Ok or pt to have a regular diet and may take blood pressure every hour now. pt mustafa of having repeat labs at 2044. remains at bedside and caring for baby.
[2021-01-04] MEDS: Lactated Ringers 1,000 ML 125 ML IV (18:39)
[2021-01-04 21:06] LABS: Hematocrit 23.9 % (37-47); Hemoglobin 7.3 g/dL (12.0-15.0); Mean Corp Hgb Conc 30.5 g/dL (32-36); Mean Corpuscular Hgb 30.7 pg (27.0-32.0); Mean Corpuscular Volume 100.4 fL (81-99); Mean Platelet Vol. 9.9 fl (6.2-12.0); Platelet Count 207 K/mm3 (150-450); RBC Distribution Width CV 12.5 % (11.6-14.6); RBC Distribution Width SD 44.8 fl (35.1-43.9); Red Blood Count 2.38 M/mm3 (4.2-5.4); White Blood Count 6.9 K/mm3 (4.4-11.0)
[2021-01-04 21:18] LABS: Protein, Urine (Random) 26.8 mg/dL (<11.9); Protein:Creat Ratio 430 mg/g CRE (0-200)
[2021-01-04 21:19] LABS: ALB/GLOB Ratio 0.7 RATIO (0.9-2.4); AST(SGOT) 34 U/L (15-37); Alanine Aminotransfer ALT/SGPT 74 U/L (13-56); Albumin, Serum 2.5 g/dL (3.2-5.0); Alkaline Phosphatase 102 U/L (45-117); Anion Gap 5 (5-15); BUN 11 mg/dL (7-18); BUN/Creat Ratio 15.4 RATIO (10-20); Calcium,Total 8.1 mg/dL (8.5-10.1); Chloride 109 mmol/L (98-107); Creatinine, Serum 0.71 mg/dL (0.55-1.02); EST Glomerular Filtration Rate 100 mL/min (>60); Est Glom Filt Rate - Afr Amer 121 mL/min (>60); Estimated Creatinine Clearance 130.06 ml/min; Globulin 3.6 g/dL (2.2-4.2); Glucose 109 mg/dL (74-106); Potassium 4.1 mmol/L (3.5-5.1); Protein, Total 6.1 g/dL (6.4-8.2); Sodium Level 140 mmol/L (136-145)
== END 2021-01-04 21:55 | disposition home or self-care (01) ==
LOC: WPOUT 16:09 → WP 16:10
PROVIDERS: Nurse Practitioner Women's Health; Referring Provider Obstetrics & Gynecology; Visit Provider Obstetrics & Gynecology
DX: O90.89 Other complications of the puerperium, not elsewhere classified (principal); R51.9 Headache, unspecified; O90.81 Anemia of the puerperium
CPT/HCPCS: 96361; 96365; 36415; 80053; 82570; 84156; 85027; 93005; 99218; J1756; J7120; G0378

== ENCOUNTER → 2021-01-04 16:08 | Outpatient (CLI) | payer BC, SELFPAY ==
[2021-01-04 15:31] VITALS: BMI 35.1
== END ==
PROVIDERS: Referring Provider Nurse Practitioner Women's Health; Visit Provider Nurse Practitioner Women's Health
DX: O16.5 Unspecified maternal hypertension, complicating the puerperium (principal)

== ENCOUNTER → 2021-01-07 12:25 | Outpatient (CLI) | payer BC, SELFPAY ==
[2021-01-07 11:58] VITALS: BMI 34.3
[2021-01-07 13:02] LABS: ALB/GLOB Ratio 0.7 RATIO (0.9-2.4); AST(SGOT) 23 U/L (15-37); Alanine Aminotransfer ALT/SGPT 66 U/L (13-56); Alkaline Phosphatase 113 U/L (45-117); Anion Gap 5 (5-15); BUN 13 mg/dL (7-18); BUN/Creat Ratio 15.8 RATIO (10-20); Calcium,Total 8.5 mg/dL (8.5-10.1); Chloride 107 mmol/L (98-107); Creatinine, Serum 0.82 mg/dL (0.55-1.02); EST Glomerular Filtration Rate 84 mL/min (>60); Est Glom Filt Rate - Afr Amer 102 mL/min (>60); Globulin 4.1 g/dL (2.2-4.2); Glucose 83 mg/dL (74-106); Potassium 4.2 mmol/L (3.5-5.1); Protein, Total 7.1 g/dL (6.4-8.2); Sodium Level 138 mmol/L (136-145)
== END ==
PROVIDERS: Visit Provider Obstetrics & Gynecology
DX: O16.5 Unspecified maternal hypertension, complicating the puerperium (principal)
CPT/HCPCS: 36415; 80053

== ENCOUNTER 2021-01-14 10:56 | Outpatient (CLI) | payer BC, SELFPAY ==
[2021-01-07 11:58] VITALS: BMI 34.3
[2021-01-14] MEDS: 0.9% NaCl Peripheral Flush Adult/Peds IV (11:06)
[2021-01-14] MEDS: 0.9% NaCl IVPB Med Flush (250 mL) 15 ML IV (11:23)
[2021-01-14 11:25] VITALS: BP 125/73; PULSE 86; RESP 16; TEMP 36.6; O2SAT 98; BMI 33.9
[2021-01-14 13:26] VITALS: BP 140/68; PULSE 84; RESP 16; TEMP 36.3; O2SAT 100
== END 2021-01-14 14:00 | disposition home or self-care (01) ==
LOC: MEDOUTP 10:57
PROVIDERS: Referring Provider Obstetrics & Gynecology; Visit Provider Obstetrics & Gynecology
DX: D64.9 Anemia, unspecified (principal)
CPT/HCPCS: 96365; 96366; J1756; J7050; A4216

== ENCOUNTER → 2021-01-22 10:59 | Outpatient (CLI) | payer BC, SELFPAY ==
[2021-01-07 11:58] VITALS: BMI 34.3
[2021-01-14 11:25] VITALS: BMI 33.9
[2021-01-22 11:06] VITALS: BP 124/78; PULSE 87; RESP 16; TEMP 35.9; O2SAT 99; BMI 33.9
[2021-01-22] MEDS: 0.9% NaCl Peripheral Flush Adult/Peds IV (11:28)
[2021-01-22] MEDS: 0.9% NaCl IVPB Med Flush (250 mL) 15 ML IV (11:28)
[2021-01-22 13:23] VITALS: BP 112/77; PULSE 70; RESP 16; TEMP 36.3; O2SAT 96
== END ==
PROVIDERS: Referring Provider Obstetrics & Gynecology; Visit Provider Obstetrics & Gynecology
DX: D64.9 Anemia, unspecified (principal)
CPT/HCPCS: 96365; 96366; J1756; J7050; A4216

== ENCOUNTER → 2021-02-10 | Outpatient (CLI) | payer BC, SELFPAY ==
[2021-02-10 08:32] VITALS: BMI 33.9
[2021-02-12 12:24] LABS: HPV APTIMA, High Risk Negative (Negative)
== END | disposition home or self-care (01) ==
LOC: LABSPEC 12:30
PROVIDERS: Referring Provider Obstetrics & Gynecology; Visit Provider Obstetrics & Gynecology
DX: Z12.4 Encounter for screening for malignant neoplasm of cervix (principal)
CPT/HCPCS: 87624; 88175; G0145

== ENCOUNTER 2021-12-03 17:07 | Outpatient (CLI) | payer BC, SELFPAY ==
[2021-12-03 17:21] LABS: Absolute Lymphocyte Count 2.55 X10^3/uL (0.83-4.51); Absolute Neutrophil Count 5.5 X10^3/uL (2.0-7.7); Basophil# 0.06 X10^3/uL; Basophil% 0.7 % (0-1); Eosinophil# 0.14 X10^3/uL; Eosinophils% 1.5 % (0-5); Hemoglobin 13.9 g/dL (12.0-15.0); Lymphocyte # 2.55 X10^3/ul (0.83-4.51); Lymphocyte % 28.2 % (19-41); Mean Corp Hgb Conc 33.9 g/dL (32-36); Mean Corpuscular Volume 91.3 fL (81-99); Mean Platelet Vol. 9.9 fl (6.2-12.0); Monocyte# 0.75 X10^3/uL; Monocyte% 8.3 % (0-10); NRBC Flagged by Analyzer 0 % (0-5); Neutrophil # 5.52 X10^3/uL (2.7-7.7); Platelet Count 226 K/mm3 (150-450); RBC Distribution Width SD 39.9 fl (35.1-43.9); Red Blood Count 4.49 M/mm3 (4.2-5.4); White Blood Count 9.1 K/mm3 (4.4-11.0)
== END 2021-12-03 23:59 | disposition home or self-care (01) ==
LOC: LAB 17:10
PROVIDERS: Visit Provider Obstetrics & Gynecology
DX: Z34.90 Encounter for supervision of normal pregnancy, unspecified, unspecified trimester (principal)
CPT/HCPCS: 36415; 85025

== ENCOUNTER 2021-12-21 08:36 | Outpatient (CLI) | payer BC, SELFPAY ==
[2021-12-21 13:43] LABS: Amphetamine Urine VISTA NEGATIVE (<1000 ng/mL); Barbiturate Urine VISTA NEGATIVE (< 200 ng/mL); Benzodiazepine Urine VISTA NEGATIVE (< 200 ng/mL); Cocaine Urine VISTA NEGATIVE (< 300 ng/mL); Ecstacy Urine VISTA NEGATIVE (< 500 ng/mL); Methadone Urine VISTA NEGATIVE (< 300 ng/mL); PCP Urine VISTA NEGATIVE (< 25 ng/mL); THC Urine VISTA NEGATIVE (< 50 ng/mL); Vista UDS pH Range 5
[2021-12-23 22:07] LABS: Chlamydia By Nucleic Acid AMP Negative (Negative)
[2021-12-23 23:01] LABS: Gonococcus By Nucleic Acid AMP Negative (Negative)
== END 2021-12-21 23:59 | disposition home or self-care (01) ==
LOC: LABSPEC 12-22 08:36
PROVIDERS: Visit Provider Obstetrics & Gynecology
DX: Z34.80 Encounter for supervision of other normal pregnancy, unspecified trimester (principal)
CPT/HCPCS: 80307; 87077; 87086; 87088; 87186; 87491; 87591

== ENCOUNTER 2021-12-29 11:44 | Outpatient (CLI) | payer BC, SELFPAY ==
[2021-12-29 12:26] LABS: Absolute Neutrophil Count 4.3 X10^3/uL (2.0-7.7); Basophil# 0.05 X10^3/uL; Basophil% 0.8 % (0-1); Eosinophil# 0.11 X10^3/uL; Eosinophils% 1.7 % (0-5); Hematocrit 38.5 % (37-47); Hemoglobin 13.2 g/dL (12.0-15.0); Lymphocyte % 22.8 % (19-41); Mean Corp Hgb Conc 34.3 g/dL (32-36); Mean Corpuscular Hgb 31.3 pg (27.0-32.0); Mean Corpuscular Volume 91.2 fL (81-99); Monocyte# 0.61 X10^3/uL; Monocyte% 9.3 % (0-10); NRBC Flagged by Analyzer 0 % (0-5); Neutrophil # 4.31 X10^3/uL (2.7-7.7); Neutrophil % 65.2 % (47-70); Platelet Count 224 K/mm3 (150-450); RBC Distribution Width CV 11.9 % (11.6-14.6); RBC Distribution Width SD 39.9 fl (35.1-43.9); Red Blood Count 4.22 M/mm3 (4.2-5.4); White Blood Count 6.6 K/mm3 (4.4-11.0)
[2021-12-29 12:49] LABS: Glucose Challenge Gest 1H 50g 72 mg/dL (70-140)
[2021-12-29 13:35] LABS: HIV - WCH Non-Reactive (Nonreactive); Hepatitis B Surface Antigen Non-Reactive (Nonreactive); Hepatitis C Antibody Non-Reactive (Nonreactive); Rubella IgG Reactive (Nonreactive); Syphilis Antibodies Non-reactive
[2021-12-29 16:15] LABS: NATERA MAILED SPECIMEN
== END 2021-12-29 23:59 | disposition home or self-care (01) ==
LOC: PAVLAB 11:47
PROVIDERS: Referring Provider Obstetrics & Gynecology; Visit Provider Obstetrics & Gynecology
DX: O99.210 Obesity complicating pregnancy, unspecified trimester (principal)
CPT/HCPCS: 36415; 82950; 85025; 86703; 86762; 86780; 86803; 86850; 86900; 86901; 87340

== ENCOUNTER → 2022-02-03 | Outpatient (CLI) | payer BC, SELFPAY | END | disposition home or self-care (01) | LOC: LABSPEC 17:24 | PROVIDERS: Visit Provider Nurse Practitioner Women's Health | DX: O99.820 Streptococcus B carrier state complicating pregnancy (principal) | CPT/HCPCS: 87077; 87086; 87088; 87186 ==

== ENCOUNTER → 2022-04-21 | Outpatient (CLI) | payer BC, SELFPAY ==
[2022-04-21 14:58] LABS: Absolute Lymphocyte Count 1.49 X10^3/uL (0.83-4.51); Absolute Neutrophil Count 5.8 X10^3/uL (2.0-7.7); Basophil# 0.03 X10^3/uL; Basophil% 0.4 % (0-1); Eosinophil# 0.05 X10^3/uL; Eosinophils% 0.6 % (0-5); Hematocrit 35.3 % (37-47); Lymphocyte # 1.49 X10^3/ul (0.83-4.51); Lymphocyte % 18.6 % (19-41); Mean Corpuscular Hgb 31.2 pg (27.0-32.0); Mean Corpuscular Volume 91.7 fL (81-99); Mean Platelet Vol. 10.1 fl (6.2-12.0); Monocyte# 0.64 X10^3/uL; NRBC Flagged by Analyzer 0 % (0-5); Neutrophil % 72.2 % (47-70); Platelet Count 196 K/mm3 (150-450); RBC Distribution Width CV 12.8 % (11.6-14.6); RBC Distribution Width SD 41.8 fl (35.1-43.9); Red Blood Count 3.85 M/mm3 (4.2-5.4)
[2022-04-21 15:23] LABS: Glucose Challenge Gest 1H 50g 82 mg/dL (70-140)
== END | disposition home or self-care (01) ==
LOC: PAVLAB 14:26
PROVIDERS: Referring Provider Obstetrics & Gynecology; Visit Provider Obstetrics & Gynecology
DX: Z34.80 Encounter for supervision of other normal pregnancy, unspecified trimester (principal)
CPT/HCPCS: 36415; 82950; 85025

== ENCOUNTER → 2022-07-08 | Outpatient (CLI) | payer BC, SELFPAY ==
--- NOTE | 2022-07-08 15:43 | US_ITS ---
STUDY: SECOND AND THIRD TRIMESTER OBSTETRICAL ULTRASOUND - LIMITED REASON FOR EXAM: Female, 37 years old. growth PRIOR ULTRASOUND: None. TECHNIQUE: Transabdominal TECHNICAL QUALITY: Adequate. FINDINGS: There is a single intrauterine fetus. The fetus is in a cephalic presentation. There is demonstrated cardiac activity with a heart rate of 138 bpm. There is a normal amniotic fluid volume. The largest amniotic fluid pocket measures 3.7 cm. The amniotic fluid index (EULALIO) is 10.5 cm. The placenta is anterior in location and is not low lying. There are Grade 2 placental changes. The cervix is obscured by overlying bowel gas and cannot be identified. . BIOMETRY: BPD: 91 mm: 37 weeks, 0 days HC: 341 mm: 39 weeks, 1 days AC: 346 mm: 38 weeks, 3 days FL: 75 mm: 38 weeks, 1 days CI: 75 FL/AC: 21.6 FL/BPD: 81 HC/AC: .99 age by current US: 38 weeks, 2 days. JAYDA by current US: 10..22. Estimated weight: 3441 grams, +/- 516 grams, 78.4 %. Age by LMP: 37 weeks, 3 days. JAYDA by LMP: 11... US/OB Limited With Biometrics IMPRESSION: There is a single live intrauterine with a heart rate of 138 bpm. age by current US: 38 weeks, 2 days. JAYDA by current US: ..22. Estimated weight: 3441 grams, +/- 516 grams, 78.4 %. EFW is greater than 75%. Large for gestational age (LGA) should be considered. Electronically Signed: Yogesh Begum MD at 17:15 EDT ,
== END | disposition home or self-care (01) ==
LOC: US 15:43
PROVIDERS: Referring Provider Obstetrics & Gynecology; Visit Provider Obstetrics & Gynecology
DX: Z34.93 Encounter for supervision of normal pregnancy, unspecified, third trimester (principal)
CPT/HCPCS: 76816

== ENCOUNTER 2022-07-23 16:30 | Inpatient (IN) | payer BC, SELFPAY ==
[2022-07-23] VITALS (34 sets, daily range): BP systolic 110–142; BP diastolic 58–91; PULSE 73–93; TEMP 35.8–36.5; O2SAT 81–100; BMI 35.4
[2022-07-23] MEDS: Lactated Ringers 1,000 ML 50 ML IV (17:00)
[2022-07-23] MEDS: LACTATED RINGERS 500 ML 999 ML IV (17:05)
[2022-07-23 17:19] LABS: Absolute Lymphocyte Count 1.27 X10^3/uL (0.83-4.51); Absolute Neutrophil Count 8.9 X10^3/uL (2.0-7.7); Basophil# 0.03 X10^3/uL; Basophil% 0.3 % (0-1); Eosinophil# 0.11 X10^3/uL; Hematocrit 35.1 % (37-47); Hemoglobin 12.4 g/dL (12.0-15.0); Lymphocyte # 1.27 X10^3/ul (0.83-4.51); Lymphocyte % 11.4 % (19-41); Mean Corp Hgb Conc 35.3 g/dL (32-36); Mean Corpuscular Hgb 31.8 pg (27.0-32.0); Mean Platelet Vol. 10.3 fl (6.2-12.0); Monocyte# 0.82 X10^3/uL; Monocyte% 7.4 % (0-10); NRBC Flagged by Analyzer 0 % (0-5); Neutrophil # 8.85 X10^3/uL (2.7-7.7); Neutrophil % 79.5 % (47-70); Platelet Count 207 K/mm3 (150-450); RBC Distribution Width CV 12.9 % (11.6-14.6); White Blood Count 11.1 K/mm3 (4.4-11.0)
[2022-07-23] MEDS: fentaNYL-bupivacaine (epidural) 100 ML BAG EPIDURAL (18:18)
[2022-07-23] MEDS: Oxytocin 10 UNITS/ML Vial IM (20:17)
--- NOTE | 2022-07-23 20:27 | HP.PCM.OB_ITS ---
HPI - General General Date of Admission: 07/23/22 HPI Narrative JAGDEEP MURPHY, is a 37 F who presents IAL 5 cm dilated regualr ctx no vb lof Maternal Data Information JAYDA Calculator Estimated Delivery Date Method Current WG Current Estimate 07/22/22 LMP (Certain) 40w 3d Other Estimates 07/23/22 Ultrasound #1 40w 2d PFSH PFSH Medical History (Updated 07/25/22 @ 06:[address] Ashia Gonzales MD) Autoimmune disease Positive GBS test Rosacea Home Medications multivitamin 1 tablet PO BID md order 05/18/20 [History Last Taken 07/22/22 21:00] Allergy/AdvReac Type Severity Reaction Status Date / Time Sulfa (Sulfonamide Allergy Mild rash Verified 07/23/22 14:39 Antibiotics) Family History Grandmother Pancreatic cancer Myocardial infarction Grandfather CVA (cerebral vascular accident) Myocardial infarction Sister Thyroid disorder Surgical History S/P eye surgery S/P tonsillectomy Social History adopted: No household members: spouse and children number of children: 1 current occupational status: unemployed current occupation: [employer] pets and animals: No history of recent travel: No Smoking Status: Never smoker alcohol intake: never substance use type: does not use caffeine: No what type of physical activity do you participate in: walking frequency: 3-4 times per week seatbelt use: always do you feel safe at home: Yes additional social history: - Asad-Nikki's History 2 Elective abortions Hx Para 1 Spontaneous abortions Hx # Term Pregnancies Ectopic pregnancies Hx # Pregnancies Multiple births # of living children 1 Past Pregnancies Del. Date Name GA/Weeks Outcome Route Bth Weight Infant Gen Labor Lgth Anesthesia Del Locatn Provider FOB Unknown 12/29/20 Gaurav 40 live - full term Male epidur al [facility] Delivery Date: Last Updated by: Davina Sow MARKETING PR INTERN, MARKETING PR INTERN-C pp Fe IV infusion due to anemia Delivery Date: 12/29/20 Last Updated by: Leyla Jolly Perineal Extension/lac, 3rd degree Visit Details Expected Delivery Route/Plan Labor Preferences- CB/BF classes: declines labor support person: Asad labor intervention preferences: [] pain management options preferred: epidural cut cord/dad catch: cord : yes PP control planned: discussed discussed possible routes of delivery and associated risks: [] special requests: [] Plans Covid status: unvaccinated Flu vaccine: unvaccinated Tdap vaccine: last year Rhogam: na LARC form signed: yes Problem list reviewed and updated with the most current plan of care details and appropriate orders placed. Relevant counseling for the gestational age provided. Continue routine care and follow up unless otherwise noted in visit notes/problem list details OB Flowsheet Initial Weight: Not Recorded Date -?-?--?-?-?-?-?-?-?-?-?-?- EGA Weight BP Urine Prot -?-?-?-?-?-?-?-?-?-?-?-?- Glucose FHR FuHt Pres Dilation -?-?-?-?-?-?-?-?-?-?-?-?- Effaced St Visit Note 12/21/21 -?-?-?-?-?-?-?-?-?-?-?-?- 9w 4d 241 lb 120/72 -?-?-?-?-?-?-?-?-?-?-?-?- -?-?-?-?-?-?-?-?-?-?-?-?- CRL consistent w ith LMP. JAYDA 07/22/22 02/03/22 -?-?-?-?-?-?-?-?-?-?-?-?- 15w 6d 244 lb 2 oz 124/78 Nega tive -?-?-?-?-?-?-?-?-?-?-?-?- Negative 160 -?-?-?-?-?-?-?-?-?-?-?-?- MH-No VB, LOF. Brief US to confirm FHT 03/03/22 -?-?-?-?-?-?-?-?-?-?-?-?- 19w 6d 241 lb 2 oz 110/70 Nega tive -?-?-?-?-?-?-?-?-?-?-?-?- Negative 155 -?-?-?-?-?-?-?-?-?-?-?-?- JV- pt had anato my scan today. results pending 03/25/22 -?-?-?-?-?-?-?-?-?-?-?-?- 23w 0d 243 lb 6 oz 100/70 Nega tive -?-?-?-?-?-?-?-?-?-?-?-?- Negative 145 -?-?-?-?-?-?-?-?-?-?-?-?- JV- no lof, vagi nal bleeding, or dec fm. no complaints today. normal anatomy scan. 04/21/22 -?-?-?-?-?-?-?-?-?-?-?-?- 26w 6d 247 lb 2 oz 106/70 Nega tive -?-?-?-?-?-?-?-?-?-?-?-?- Negative 161 -?-?-?-?-?-?-?-?-?-?-?-?- MH-No VB, LOF. G ood FM for ant placenta. 28 wk labs, [facility] 05/05/22 -?--?-?-?-?-?-?-?-?-?-?-?- 28w 6d 249 lb 112/72 Negative -?-?-?-?-?-?-?-?-?-?-?-?- Negative 156 -?-?-?-?-?-?-?-?-?-?-?-?- MH-No VB, LOF. G ood FM. tdap. 05/19/22 -?-?-?-?-?-?-?-?-?-?-?-?- 30w 6d 248 lb 122/70 -?-?-?-?-?-?-?-?-?-?-?-?- 150 32 -?-?-?-?-?-?-?-?-?-?-?-?- SM- no vb lof go od fm no regualr ctx 06/03/22 -?-?-?-?-?-?-?-?-?-?-?-?- 33w 0d 253 lb 4 oz 133/71 -?-?-?-?-?-?-?-?-?-?-?-?- Negative 125 34 -?-?-?-?-?-?-?-?-?-?-?-?- JV- no lof, vagi nal bleeding, or dec Fm. 06/15/22 -?-?-?-?-?-?-?-?-?-?-?-?- 34w 5d 254 lb 6 oz 104/72 Nega tive -?-?-?-?-?-?-?-?-?--?-?-?- Negative 145 35 Cephalic -?-?-?-?-?-?-?-?-?-?-?-?- JV- no lof, vagi nal bleeding, or dec fm. no complaints. 06/24/22 -?-?-?-?-?-?-?-?-?-?-?-?- 36w 0d 254 lb 111/73 Negative -?-?-?-?-?-?-?-?-?-?-?-?- Negative 140 36 Cephalic 1 -?-?-?-?-?-?-?-?-?-?-?-?- 20 -3 SM- no vb lof good fm no regular ctx 07/01/22 -?-?-?-?-?-?-?-?-?-?-?-?- 37w 0d 254 lb 108/72 Negative -?-?-?-?-?-?-?-?-?-?-?-?- Negative 145 37 Cephalic -?-?-?-?-?-?-?-?-?-?-?-?- SM- no vb lof go od fm no regular ctx 07/08/22 -?-?-?-?-?-?-?-?-?-?-?-?- 38w 0d 257 lb 120/72 Negative -?-?-?-?-?-?-?-?-?-?-?-?- Negative 160 Cephalic -?-?-?-?-?-?-?-?-?-?-?-?- SM- no vb lof go od fm no regular ctx. US today. 07/15/22 -?-?-?-?-?-?-?-?-?-?-?-?- 39w 0d 258 lb 6 oz 115/73 Nega tive -?-?-?-?-?-?-?-?-?-?-?-?- Negative 154 38 Cephalic 2 -?-?-?-?-?-?-?-?-?-?-?-?- 40 -3 JV- no lof , vaginal bleeding, or dec fm. pt wants to go to 41 weeks. growth scan was normal. expect 8 pounds by 40 weeks. 07/22/22 -?-?-?-?-?-?-?-?-?-?-?-?- 40w 0d 259 lb 124/82 Negative -?-?-?--?-?-?-?-?-?-?-?-?- Negative 150 41 Cephalic 3 -?-?-?-?-?-?-?-?-?-?-?-?- 70 -2 SM- no vb lof good fm no regular ctx. patient prefers exp management plan NST next week. 07/23/22 -?-?-?-?-?-?-?-?-?-?-?-?- 40w 1d 261 lb 137/81 142/84 132/83 131/82 136/81 132/81 138/91 138/83 119/65 115/58 127/76 110/68 118/76 126/64 131/76 141/71 119/66 121/63 119/63 115/76 136/75 -?-?-?-?-?-?-?-?-?-?-?-?- -?-?-?-?-?-?-?-?-?-?-?-?- NST FHR Rate Baby A Baseline: 140 Variability:: Moderate Accelerations:: 15 x 15 Decelerations:: None NST Reactive:: Yes FHR Category:: Category I Uterine Activity:: q3-5 ROS Constitutional Constitutional: Reports systems reviewed and no addt'l complaints, except as documented ENT HEENT: Reports systems reviewed and no addt'l complaints, except as documented Cardiovascular Cardiovascular: Reports systems reviewed and no addt'l complaints, except as doc umented Respiratory/Chest Respiratory/Chest: Reports systems reviewed and no addt'l complaints, except as documented Gastrointestinal Gastrointestinal: Reports systems reviewed and no addt'l complaints, except as documented and nausea; Denies abdominal pain Genitourinary Genitourinary: Reports systems reviewed and no addt'l complaints, except as documented, contractions Details: present and frequency (regular ) and movement Details: present Musculoskeletal Musculoskeletal: Reports systems reviewed and no addt'l complaints, except as documented Integumentary Integumentary: Reports as per HPI Neurologic Neurologic: Reports systems reviewed and no addt'l complaints, except as documented Endocrine Endocrinology: Reports systems reviewed and no addt'l complaints, except as documented Vital Signs Vital Signs Vital Signs: 07/23/22 14:37 07/23/22 14:38 07/23/22 14:38 Temperature Temperature Source Temporal Pulse Rate 82 Blood Pressure 137/81 H BP Systolic 137 BP Diastolic 81 Pulse Ox 07/23/22 14:37 07/23/22 14:37 07/23/22 16:45 Temperature 97.7 F L Temperature Source Temporal Pulse Rate Blood Pressure BP Systolic BP Diastolic Pulse Ox 98 07/23/22 16:45 07/23/22 16:45 07/23/22 16:45 Temperature Temperature Source Pulse Rate 82 Blood Pressure 142/84 H BP Systolic 142 BP Diastolic 84 Pulse Ox 98 07/23/22 16:45 07/23/22 17:49 07/23/22 17:49 Temperature 96.9 F L Temperature Source Pulse Rate 81 Blood Pressure BP Systolic BP Diastolic Pulse Ox 98 07/23/22 17:54 07/23/22 17:54 07/23/22 17:59 Temperature Temperature Source Pulse Rate 87 77 Blood Pressure BP Systolic BP Diastolic Pulse Ox 99 07/23/22 17:59 07/23/22 18:05 07/23/22 18:05 Temperature Temperature Source Pulse Rate 73 Blood Pressure 132/83 H BP Systolic 132 BP Diastolic 83 Pulse Ox 98 07/23/22 18:04 07/23/22 18:09 07/23/22 18:09 Temperature Temperature Source Pulse Rate 83 Blood Pressure BP Systolic BP Diastolic Pulse Ox 99 99 07/23/22 18:10 07/23/22 18:10 07/23/22 18:14 Temperature Temperature Source Pulse Rate 85 Blood Pressure 131/82 H 136/81 H BP Systolic 131 136 BP Diastolic 82 81 Pulse Ox 07/23/22 18:14 07/23/22 18:14 07/23/22 18:20 Temperature Temperature Source Pulse Rate 83 Blood Pressure 132/81 H BP Systolic 132 BP Diastolic 81 Pulse Ox 97 07/23/22 18:20 07/23/22 18:19 07/23/22 18:24 Temperature Temperature Source Pulse Rate 86 79 Blood Pressure BP Systolic BP Diastolic Pulse Ox 98 07/23/22 18:24 07/23/22 18:25 07/23/22 18:25 Temperature Temperature Source Pulse Rate 75 Blood Pressure 138/91 H BP Systolic 138 BP Diastolic 91 Pulse Ox 100 07/23/22 18:26 07/23/22 18:28 07/23/22 18:28 Temperature 97.0 F L Temperature Source Pulse Rate 76 Blood Pressure 138/83 H BP Systolic 138 BP Diastolic 83 Pulse Ox 07/23/22 18:29 07/23/22 18:29 07/23/22 18:34 Temperature Temperature Source Pulse Rate 73 81 Blood Pressure BP Systolic BP Diastolic Pulse Ox 95 07/23/22 18:34 07/23/22 18:36 07/23/22 18:36 Temperature Temperature Source Pulse Rate 80 Blood Pressure 119/65 BP Systolic 119 BP Diastolic 65 Pulse Ox 97 07/23/22 19:04 07/23/22 19:04 07/23/22 19:04 Temperature Temperature Source Temporal Pulse Rate 73 Blood Pressure 115/58 L BP Systolic 115 BP Diastolic 58 Pulse Ox 07/23/22 19:04 07/23/22 19:29 07/23/22 19:47 Temperature 96.5 F L Temperature Source Pulse Rate Blood Pressure 127/76 H BP Systolic 127 BP Diastolic 76 Pulse Ox 81 07/23/22 19:47 07/23/22 19:46 Temperature Temperature Source Pulse Rate 82 Blood Pressure BP Systolic BP Diastolic Pulse Ox 95 Weight Weight: 261 lb Body Mass Index (BMI) 35.4 Physical Exam Const alert, oriented x3 and healthy appearing Constitutional Narrative: uncomfortable with contractions HEENT normocephalic and moist oral mucous membranes Head and Scalp: atraumatic Neck full ROM, no lymphadenopathy, supple and thyroid normal General: trachea midline Thyroid: thyroid normal Lymph Lymphatic: no lymphadenopathy noted Chest inspection of chest normal Resp normal respiratory effort Cardio regular rate GI normal to inspection, nondistended, normoactive bowel sounds, soft to palpation and non-tender Inspection: gravid external exam normal Bimanual Exam - Vag & Uterus: uterus non-tender Manual OB Exam: estimated gestational size appropriate, presentation cephalic, dilated, effaced and station Extremity normal to inspection General Extremity: Negative for edema Skin no rashes or lesions noted Neuro deep tendon reflexes 2+ bilaterally Motor Exam: strength 5/5 throughout and clonus absent Psych mental status grossly normal Labs Labs Labs: Blood Type O POSITIVE Antibody Screen NEGATIVE Hct 35.1 % (37-47) L Hgb 12.4 g/dL (12.0-15.0) Obstetrics US Syphilis Total Ab Non-reactive Rubella IgG Antibody Reactive (Nonreactive) Hep Bs Antigen Non-Reactive (Nonreactive) Chlamydia DNA (ALVARO) Negative (Negative) Neisseria gonorrhoeae DNA (ALVARO) Negative (Negative) HIV 1&2 Antibody Non-Reactive (Nonreactive) Glucose 1 Hr 50 gm 82 mg/dL (70-140) Rhogam given: No Assessment & Plan (1) Active labor at term: (2) Albinism: COMMENT: limited vision (3) AMA (advanced maternal age) multigravida 35+: COMMENT: nipt low risk, 07/08 growth scan nl. requests IOL 41 weeks, plan nst next week (4) Anemia: COMMENT: had to have pp IV FE infusion X 3 (5) Positive GBS test: COMMENT: pcn in labor (6) : QUALIFIERS: Weeks of gestation: 40 weeks Qualified Code(s): Z3A.40 - 40 weeks gestation of COMMENT: anatomy nl, Declines carrier. Low Risk NIPT PLAN: Plan admit IAL exp management epidural
--- NOTE | 2022-07-23 20:27 | OP.PCM_ITS ---
Assessment & Plan (1) Vaginal delivery: COMMENT: SM girl lizy 40 ial Maternal Data Information JAYDA Calculator Estimated Delivery Date Method Current WG Current Estimate 07/22/22 LMP (Certain) 40w 3d Other Estimates 07/23/22 Ultrasound #1 40w 2d Vaginal Delivery Operative Information Date of Procedure: 07/25/22 Pre-Operative Diagnosis: IAL Post-Operative Diagnosis: same Surgery / Procedure Performed: Spontaneous Vaginal Delivery Type of Anesthesia: Epidural Special Medications: none Estimated Blood Loss: 200 Fluids Replaced: crystalloid Findings Description of Procedure: Patient began pushing and delivered the head in the KAMAR presentation. The head was delivered atraumatically . The anterior and posterior shoulders delivered without complication followed by the rest of the and the was placed on the maternal abdomen. Delayed cord clamping was employed for approximately 60 seconds. Cord was clamped and cut and gentle traction was applied to the cord and the placenta delivered spontaneously immediately following it was noted to be intact with three-vessel cord. The perineum and vagina were inspected and noted to have a second degree laceration repaired in the usual fashion with 3-0 rapide. EBL was 200. Patient and infant tolerated delivery well. Presentation: KAMAR Amniotic Membrane Rupture Type: Artificial Amniotic Fluid Description: Clear Placental Delivery Description: Spontaneous Placenta Disposition: [facility] Cord Vessel Description: 3 Vessels Cord Entanglement: None Infant A Gender: Female Delayed Cord Clamping: Yes Post Vaginal Delivery Medications Given After Delivery: IV Pitocin Episiotomy Description: None Laceration: Perineal Extension/lac and 2nd degree Complication Complications: None Procedures Urinary/Genital [id number]: [id number] Vaginal Delivery [facility]
[2022-07-24 00:05] VITALS: BP 136/75; PULSE 82; RESP 14; TEMP 36.6
[2022-07-24 03:28] VITALS: BP 137/74; PULSE 78; RESP 14; TEMP 36.4
--- NOTE | 2022-07-24 07:58 | PCM.PN.OB ---
Subjective Subjective Patient doing well without complaints. Tolerating PO. Ambulating and voiding without difficulty. infant feeding well. Denies chest pain, shortness of breath, calf pain/swelling, fevers, chills, lightheadedness. Objective Data Objective Data Vital Signs: Vital Signs Temp Pulse Resp BP Pulse Ox O2 Del Method 97.6 F L 78 14 137/74 H 97 Room Air 07/24/22 03:28 07/24/22 03:28 07/24/22 03:28 07/24/22 03:28 07/23/22 20:29 07/24/22 03:28 Oxygen Delivery Method Room Air Weight: 261 lb Body Mass Index (BMI) 35.4 Intake & Output: Intake and Output for Last 24 Hours 07/22/22 07/23/22 07/24/22 23:59 23:59 23:59 Intake Total 1085.40 / 1085.40 Output Total 900 / 900 Balance 1085.40 / 1085.40 -900 / -900 Lab / Micro Data Result Diagrams: 07/23/22 17:00 Labs: Laboratory Results - last 24 hr 07/23/22 17:00: WBC 11.1 H, RBC 3.90 L, Hgb 12.4, Hct 35.1 L, MCV 90.0, MCH 31.8, MCHC 35.3, RDW Std Deviation 42.0, RDW Coeff of Nic 12.9, Plt Count 207, MPV 10.3, Immature Gran % (Auto) 0.400, Neut % (Auto) 79.5 H, Lymph % (Auto) 11.4 L, Dewey % (Auto) 7.4, Eos % (Auto) 1.0, Baso % (Auto) 0.3, Absolute Neuts (auto) 8.9 H, Absolute Lymphs (auto) 1.27, Nucleated RBC % 0 07/23/22 17:00: Blood Type O POSITIVE, Antibody Screen NEGATIVE Micro: Microbiology 07/23/22 17:05 Nasal Secretion SARS-CoV-2 Antigen (Rapid) - Final ROS Constitutional Constitutional: Reports systems reviewed and no addt'l complaints, except as documented Cardiovascular Cardiovascular: Reports systems reviewed and no addt'l complaints, except as documented Respiratory/Chest Respiratory/Chest: Reports systems reviewed and no addt'l complaints, except as documented Gastrointestinal Gastrointestinal: Reports systems reviewed and no addt'l complaints, except as documented Physical Exam Const alert, oriented x3 and no apparent distress HEENT Head and Scalp: atraumatic Resp normal respiratory effort GI soft to palpation and non-tender Bimanual Exam - Vag & Uterus: uterus non-tender Uterus Palpation: uterus fundus firm (below Umbilicus) Assessment & Plan (1) Vaginal delivery: COMMENT: SM girl lizy 40 ial
[2022-07-24 08:36] VITALS: BP 135/79; PULSE 78; RESP 16; TEMP 36.7
[2022-07-24] MEDS: Acetaminophen 500 MG Tablet 1000 MG PO ×3 (08:54→22:22)
[2022-07-24 12:35] VITALS: BP 125/75; PULSE 75; RESP 16; TEMP 37
[2022-07-24 17:35] VITALS: BP 118/72; PULSE 85; RESP 12; TEMP 36.2; O2SAT 97
[2022-07-24 19:38] VITALS: BP 127/77; PULSE 65; RESP 16; TEMP 36.3; O2SAT 97
[2022-07-25 01:40] VITALS: BP 99/60; PULSE 65; RESP 16; TEMP 36.3; O2SAT 97
[2022-07-25] MEDS: Acetaminophen 500 MG Tablet 1000 MG PO (05:13)
--- NOTE | 2022-07-25 06:56 | DCINST_ITS ---
Discharge Instructions Diet Discharge Diet: No restrictions Activity Discharge Activity: Return to Normal Activity, May Drive, May Shower and May Take a Tub Bath (in 4 weeks) May resume sexual activity in: 6-8 weeks (after seen by OB provider) Weight Bearing Status: Full weight bearing Lifting Restrictions: none Dressing / Incision Call your doctor if you observe: Fever of 101 or Higher, Inability to urinate, Using more than 1 pad per hour (for more than 2 hours in a row or more), Shortness of breath, Dizziness, Chest pain and - (headache not controlled with tylenol, change in vision) Follow Up Care When: in 6 weeks for visit, call the office to make the appointment. If you had elevated blood pressures call the office to be seen within 1 week. Test Results: Test results from this visit will be discussed in further detail at your follow- up appointment, if applicable. Discharge Plan Admission Admit Date/Time: 07/23/22 16:30 Attending Provider: Ashia Gonzales Primary Care Provider: Care PhysicianCamila Primary Discharge Orders/Prescriptions Prescriptions: No Action multivitamin Tablet 1 tablet PO BID Label Comments: vitamin Referrals / Follow Up: Care Physician,Camila Primary [Primary Care Provider] - Disposition Disposition (needs filled in before D/C Order can be placed): Home, Self Care
--- NOTE | 2022-07-25 07:56 | PCM.PN.OB ---
Subjective Subjective Patient doing well without complaints. Tolerating PO. Ambulating and voiding without difficulty. Feeding well. Denies chest pain, shortness of breath, calf pain/swelling, fevers, chills, lightheadedness. Objective Data Objective Data Vital Signs: Vital Signs Temp Pulse Resp BP Pulse Ox O2 Del Method 97.3 F L 65 16 99/60 97 Room Air 07/25/22 01:40 07/25/22 01:40 07/25/22 01:40 07/25/22 01:40 07/25/22 01:40 07/25/22 01:40 Oxygen Delivery Method Room Air Weight: 261 lb Body Mass Index (BMI) 35.4 Intake & Output: Intake and Output for Last 24 Hours 07/23/22 07/24/22 07/25/22 23:59 23:59 23:59 Intake Total 1085.40 / 1085.40 Output Total 900 / 900 Balance 1085.40 / 1085.40 -900 / -900 Lab / Micro Data Attestation: I reviewed the patient's lab results. Result Diagrams: 07/23/22 17:00 Micro: Microbiology 07/23/22 17:05 Nasal Secretion SARS-CoV-2 Antigen (Rapid) - Final Physical Exam Const alert, oriented x3 and no apparent distress HEENT Head and Scalp: atraumatic Resp normal respiratory effort GI soft to palpation and non-tender Bimanual Exam - Vag & Uterus: uterus non-tender Uterus Palpation: uterus fundus firm (below Umbilicus) Assessment & Plan (1) Vaginal delivery: COMMENT: SM girl lizy 40 ial PLAN: s/p PPD # 2 1. routine post delivery care 2. breast feeding- support given 3. rh positive 4. rubella immune 5. d/c home today
[2022-07-25 08:01] VITALS: BP 137/91; PULSE 84; RESP 16; TEMP 36.1; O2SAT 97
[2022-07-25 08:32] VITALS: BP 120/68
== END 2022-07-25 10:20 | disposition home or self-care (01) | DRG 806 ==
LOC: WP 07-25 06:56 → WPOUT 07-25 11:05
PROVIDERS: Admitting Provider Obstetrics & Gynecology; Visit Provider Obstetrics & Gynecology
DX: O99.02 Anemia complicating childbirth (principal); Z37.0 Single live birth; E70.30 Albinism, unspecified; L94.0 Localized scleroderma [morphea]; O99.72 Diseases of the skin and subcutaneous tissue complicating childbirth; O99.284 Endocrine, nutritional and metabolic diseases complicating childbirth; Z3A.40 40 weeks gestation of pregnancy; O70.1 Second degree perineal laceration during delivery; O99.824 Streptococcus B carrier state complicating childbirth; O99.214 Obesity complicating childbirth; Z28.310 Unvaccinated for COVID-19; Z28.9 Immunization not carried out for unspecified reason
CPT/HCPCS: 59025; 59050; 85025; 86850; 86900; 86901; 87811; 99218; J7120; G0378

== ENCOUNTER 2022-07-28 17:35 | Outpatient (CLI) | payer BC, SELFPAY ==
[2022-07-28] VITALS (14 sets, daily range): BP systolic 119–138; BP diastolic 69–89; PULSE 57–74; RESP 16; TEMP 36.9; O2SAT 97; BMI 34.3
--- NOTE | 2022-07-28 18:08 | NURSING ---
Dr. Gonzales on unit - notified MD of pt's VS and symptoms - pre-E labs ordered.
[2022-07-28 18:20] LABS: Hematocrit 33.3 % (37-47); Hemoglobin 11.5 g/dL (12.0-15.0); Mean Corp Hgb Conc 34.5 g/dL (32-36); Mean Corpuscular Hgb 31.6 pg (27.0-32.0); Mean Corpuscular Volume 91.5 fL (81-99); Mean Platelet Vol. 10.3 fl (6.2-12.0); Platelet Count 222 K/mm3 (150-450); RBC Distribution Width CV 12.8 % (11.6-14.6); RBC Distribution Width SD 42.7 fl (35.1-43.9); Red Blood Count 3.64 M/mm3 (4.2-5.4)
--- NOTE | 2022-07-28 18:29 | OB.TRI.PN ---
Progress Notes Date of Service: 07/28/22 Progress Note: patient seen for elevaetd bp at home, normal bps here, headache. tylenol improved headache. no clonus or hyperreflexia. preeclampsia labs alt elevated and urine protein elevated. reviewed preeclampsia precautions and recommend modified bedrest at home and fu in office monday, sooner if severe bps or neuro symptoms. Laboratory Studies: Laboratory Tests 07/28/22 Range/Units 18:00 WBC 7.0 (4.4-11.0) K/mm3 RBC 3.64 L (4.2-5.4) M/mm3 Hgb 11.5 L (12.0-15.0) g/dL Hct 33.3 L (37-47) % MCV 91.5 (81-99) fL MCH 31.6 (27.0-32.0) pg MCHC 34.5 (32-36) g/dL RDW Std Deviation 42.7 (35.1-43.9) fl RDW Coeff of Nic 12.8 (11.6-14.6) % Plt Count 222 (150-450) K/mm3 MPV 10.3 (6.2-12.0) fl Assessment & Plan (1) Preeclampsia in period: COMMENT: urine protein and alt elevated, nl bps. patient to follow home bps and fu in office monday for repeat labs and bp check
[2022-07-28 19:01] LABS: Protein, Urine (Random) 28.9 mg/dL (<11.9); Protein:Creat Ratio 941 mg/g CRE (0-200)
[2022-07-28 19:16] LABS: AST(SGOT) 34 U/L (15-37); Alanine Aminotransfer ALT/SGPT 93 U/L (13-56); Creatinine, Serum 0.56 mg/dL (0.55-1.02); EST Glomerular Filtration Rate 130 mL/min (>60); Est Glom Filt Rate - Afr Amer 157 mL/min (>60); Estimated Creatinine Clearance 161.81 ml/min; Uric Acid 4.8 mg/dL (2.6-6.0)
[2022-07-28] MEDS: Acetaminophen 500 MG Tablet 1000 MG PO (20:07)
== END 2022-07-28 21:00 | disposition home or self-care (01) ==
LOC: WPOUT 17:39 → WP 17:40
PROVIDERS: Visit Provider Obstetrics & Gynecology
DX: O14.90 Unspecified pre-eclampsia, unspecified trimester (principal); Z3A.00 Weeks of gestation of pregnancy not specified
CPT/HCPCS: 36415; 82565; 82570; 84156; 84450; 84460; 84550; 85027; 99218; G0378

== ENCOUNTER → 2022-08-01 | Outpatient (CLI) | payer BC, SELFPAY ==
[2022-08-01 09:01] LABS: Absolute Lymphocyte Count 1.89 X10^3/uL (0.83-4.51); Absolute Neutrophil Count 4.6 X10^3/uL (2.0-7.7); Basophil# 0.05 X10^3/uL; Basophil% 0.7 % (0-1); Eosinophil# 0.12 X10^3/uL; Eosinophils% 1.6 % (0-5); Hematocrit 39.6 % (37-47); Lymphocyte # 1.89 X10^3/ul (0.83-4.51); Lymphocyte % 25.8 % (19-41); Mean Corp Hgb Conc 32.8 g/dL (32-36); Mean Corpuscular Hgb 30.7 pg (27.0-32.0); Mean Corpuscular Volume 93.4 fL (81-99); Mean Platelet Vol. 9.8 fl (6.2-12.0); Monocyte# 0.61 X10^3/uL; Monocyte% 8.3 % (0-10); NRBC Flagged by Analyzer 0 % (0-5); Neutrophil # 4.62 X10^3/uL (2.7-7.7); Neutrophil % 63.1 % (47-70); Platelet Count 266 K/mm3 (150-450); RBC Distribution Width CV 12.4 % (11.6-14.6); RBC Distribution Width SD 42.7 fl (35.1-43.9); Red Blood Count 4.24 M/mm3 (4.2-5.4); White Blood Count 7.3 K/mm3 (4.4-11.0)
[2022-08-01 09:15] LABS: ALB/GLOB Ratio 0.7 RATIO (0.9-2.4); AST(SGOT) 19 U/L (15-37); Alanine Aminotransfer ALT/SGPT 66 U/L (13-56); Alkaline Phosphatase 127 U/L (45-117); Anion Gap 6 (5-15); BUN 12 mg/dL (7-18); BUN/Creat Ratio 16.6 RATIO (10-20); Calcium,Total 8.8 mg/dL (8.5-10.1); Chloride 106 mmol/L (98-107); Creatinine, Serum 0.72 mg/dL (0.55-1.02); EST Glomerular Filtration Rate 97 mL/min (>60); Est Glom Filt Rate - Afr Amer 118 mL/min (>60); Globulin 4.1 g/dL (2.2-4.2); Glucose 85 mg/dL (74-106); Potassium 4.3 mmol/L (3.5-5.1); Protein, Total 7.1 g/dL (6.4-8.2); Sodium Level 140 mmol/L (136-145); Uric Acid 5.5 mg/dL (2.6-6.0)
[2022-08-01 09:24] LABS: Protein, Urine (Random) 22.4 mg/dL (<11.9); Protein:Creat Ratio 313 mg/g CRE (0-200)
== END | disposition home or self-care (01) ==
LOC: PAVLAB 08:34
PROVIDERS: Referring Provider Obstetrics & Gynecology; Visit Provider Obstetrics & Gynecology
DX: O14.95 Unspecified pre-eclampsia, complicating the puerperium (principal); Z3A.00 Weeks of gestation of pregnancy not specified
CPT/HCPCS: 36415; 80053; 82570; 84156; 84550; 85025

== ENCOUNTER → 2023-08-30 | Outpatient (CLI) | payer BC, SELFPAY ==
[2023-09-02 06:09] LABS: Chlamydia By Nucleic Acid AMP Negative (Negative); Gonococcus By Nucleic Acid AMP Negative (Negative)
== END | disposition home or self-care (01) ==
PROVIDERS: Referring Provider Registered Nurse; Visit Provider Registered Nurse
DX: Z34.90 Encounter for supervision of normal pregnancy, unspecified, unspecified trimester (principal); Z3A.00 Weeks of gestation of pregnancy not specified
CPT/HCPCS: 87077; 87086; 87088; 87491; 87591

== ENCOUNTER → 2023-09-05 | Outpatient (CLI) | payer BC, SELFPAY ==
[2023-09-05 17:05] LABS: Absolute Neutrophil Count 5.9 X10^3/uL (2.0-7.7); Basophil# 0.04 X10^3/uL; Basophil% 0.5 % (0-1); Eosinophil# 0.05 X10^3/uL; Eosinophils% 0.6 % (0-5); Hematocrit 37.1 % (37-47); Lymphocyte % 18.8 % (19-41); Mean Corp Hgb Conc 32.3 g/dL (32-36); Mean Corpuscular Hgb 28.9 pg (27.0-32.0); Mean Corpuscular Volume 89.4 fL (81-99); Mean Platelet Vol. 10.6 fl (6.2-12.0); Monocyte# 0.54 X10^3/uL; Monocyte% 6.8 % (0-10); NRBC Flagged by Analyzer 0 % (0-5); Neutrophil # 5.85 X10^3/uL (2.7-7.7); Platelet Count 228 K/mm3 (150-450); RBC Distribution Width CV 12.4 % (11.6-14.6); RBC Distribution Width SD 40.2 fl (35.1-43.9); Red Blood Count 4.15 M/mm3 (4.2-5.4)
[2023-09-05 17:26] LABS: ALB/GLOB Ratio 0.8 RATIO (0.9-2.4); AST(SGOT) 9 U/L (15-37); Alanine Aminotransfer ALT/SGPT 20 U/L (13-56); Albumin, Serum 3.4 g/dL (3.2-5.0); Alkaline Phosphatase 63 U/L (45-117); Anion Gap 4 (5-15); BUN 11 mg/dL (7-18); BUN/Creat Ratio 13.8 RATIO (10-20); Chloride 107 mmol/L (98-107); EST Glomerular Filtration Rate 86 mL/min (>60); Est Glom Filt Rate - Afr Amer 104 mL/min (>60); Glucose 97 mg/dL (74-106); Potassium 3.5 mmol/L (3.5-5.1); Protein, Total 7.4 g/dL (6.4-8.2); Sodium Level 137 mmol/L (136-145)
[2023-09-05 17:32] LABS: Hemoglobin A1c 5.2 % (3.8-5.6)
[2023-09-05 18:03] LABS: HIV - WCH Non-Reactive (Nonreactive); Hepatitis B Surface Antigen Non-Reactive (Nonreactive); Hepatitis C Antibody Non-Reactive (Nonreactive); Rubella IgG Reactive (Nonreactive); Syphilis Antibodies Non-reactive
== END | disposition home or self-care (01) ==
LOC: LAB 16:36
PROVIDERS: Referring Provider Registered Nurse; Visit Provider Registered Nurse
DX: O09.299 Supervision of pregnancy with other poor reproductive or obstetric history, unspecified trimester (principal); Z3A.00 Weeks of gestation of pregnancy not specified
CPT/HCPCS: 36415; 80053; 83036; 85025; 86703; 86762; 86780; 86803; 86850; 86900; 86901; 87340

== ENCOUNTER → 2023-09-06 | Outpatient (CLI) | payer BC, SELFPAY ==
[2023-09-06 16:18] LABS: NATERA MAILED SPECIMEN
== END | disposition home or self-care (01) ==
LOC: PAVLAB 15:05
PROVIDERS: Referring Provider Nurse Practitioner Women's Health; Visit Provider Nurse Practitioner Women's Health
DX: R69 Illness, unspecified (principal)

== ENCOUNTER → 2024-01-08 | Outpatient (CLI) | payer BC, SELFPAY ==
[2024-01-08 16:19] LABS: Absolute Lymphocyte Count 1.75 X10^3/uL (0.83-4.51); Absolute Neutrophil Count 6.9 X10^3/uL (2.0-7.7); Basophil# 0.04 X10^3/uL; Basophil% 0.4 % (0-1); Eosinophil# 0.06 X10^3/uL; Eosinophils% 0.6 % (0-5); Hematocrit 33.9 % (37-47); Lymphocyte # 1.75 X10^3/ul (0.83-4.51); Lymphocyte % 18.3 % (19-41); Mean Corp Hgb Conc 32.4 g/dL (32-36); Mean Corpuscular Hgb 28.4 pg (27.0-32.0); Mean Corpuscular Volume 87.6 fL (81-99); Monocyte% 8.4 % (0-10); NRBC Flagged by Analyzer 0 % (0-5); Neutrophil # 6.85 X10^3/uL (2.7-7.7); Neutrophil % 71.9 % (47-70); Platelet Count 216 K/mm3 (150-450); RBC Distribution Width CV 12.9 % (11.6-14.6); RBC Distribution Width SD 40.4 fl (35.1-43.9); Red Blood Count 3.87 M/mm3 (4.2-5.4); White Blood Count 9.5 K/mm3 (4.4-11.0)
[2024-01-08 16:30] LABS: Glucose Challenge Gest 1H 50g 70 mg/dL (70-140)
[2024-01-08 17:04] LABS: HIV - WCH Non-Reactive (Nonreactive); Syphilis Antibodies Non-reactive
== END | disposition home or self-care (01) ==
LOC: LAB 16:01
PROVIDERS: Referring Provider Advanced Practice Midwife; Visit Provider Advanced Practice Midwife
DX: O09.90 Supervision of high risk pregnancy, unspecified, unspecified trimester (principal); Z3A.00 Weeks of gestation of pregnancy not specified
CPT/HCPCS: 36415; 82950; 85025; 86703; 86780

== ENCOUNTER → 2024-01-12 | Outpatient (CLI) | payer BC, SELFPAY ==
--- NOTE | 2024-01-12 16:20 | US_ITS ---
STUDY: SECOND AND THIRD TRIMESTER OBSTETRICAL ULTRASOUND - LIMITED REASON FOR EXAM: Female, 38 years old low lying placenta PRIOR ULTRASOUND: No relevant prior comparison study available TECHNIQUE: Transabdominal pelvic ultrasound TECHNICAL QUALITY: Adequate. FINDINGS: There is a single intrauterine fetus. The fetus is in a transverse lie with the head on the maternal right side. There is demonstrated cardiac activity with a heart rate of 136 bpm. There is a normal amniotic fluid volume. The largest amniotic fluid pocket measures 5.7 cm. The amniotic fluid index (EULALIO) is 15.6 cm. The placenta is posterior in location and is not low lying. There are Grade 1 placental changes. The cervix measures 4.9 cm in length. US/OB Limited (No Biometrics) IMPRESSION: Single live intrauterine . Posterior positioning of the placenta which is not low lying. Electronically Signed: Luis Miguel Saini MD at 7:03 EDT ,
== END | disposition home or self-care (01) ==
LOC: US 16:16
PROVIDERS: PCP Nurse Practitioner Primary Care; Referring Provider Obstetrics & Gynecology; Visit Provider Obstetrics & Gynecology
DX: O44.42 Low lying placenta NOS or without hemorrhage, second trimester (principal); Z3A.00 Weeks of gestation of pregnancy not specified
CPT/HCPCS: 76815

== ENCOUNTER → 2024-03-04 | Outpatient (CLI) | payer BC, SELFPAY ==
--- NOTE | 2024-03-04 15:07 | US_ITS ---
STUDY: Ultrasound OB limited 1 or more fetus REASON FOR EXAM: Female, 39 years old growth -- 36 weeks PROVIDED: 36 weeks 1 day correlating with 03/31/2024 delivery date PRIOR ULTRASOUND: January 12, 2024 TECHNIQUE: Transabdominal OB ultrasound with grayscale color flow and M-mode Doppler FINDINGS: There is a single live intrauterine fetus. The fetus is in a cephalic presentation. There is demonstrated cardiac activity with a heart rate of 122 bpm. There is a normal amniotic fluid volume. The largest amniotic fluid pocket measures 5.1 cm. The amniotic fluid index (EULALIO) is 15.9 cm. The placenta is posterior. There are Grade 1 placental changes. The cervix is obscured by cranial shadow. BIOMETRY: BPD: 8.8 cm: 35 weeks, 2 days HC: 33.7 cm: 38 weeks, 4 days AC: 33.5 cm: 37 weeks, 3 days FL: 6.8 cm: 34 weeks, 5 days age by current US: 36 weeks, 5 days. JAYDA by current US: March 27, 2024. Estimated weight: 2944 grams, +/- 442 grams, 60 percentile compared to prior dating. US/OB Limited With Biometrics IMPRESSION: Single live intrauterine with current cephalic presentation and normal heart rate. growth by biometry is concordant with provided dating. weight as above. Electronically Signed: Gera Chen MD at 22:57 EDT ,
== END | disposition home or self-care (01) ==
PROVIDERS: PCP Nurse Practitioner Primary Care; Referring Provider Obstetrics & Gynecology; Visit Provider Obstetrics & Gynecology
DX: O09.529 Supervision of elderly multigravida, unspecified trimester (principal); Z3A.00 Weeks of gestation of pregnancy not specified
CPT/HCPCS: 76816

== ENCOUNTER 2024-04-04 07:29 | Inpatient (IN) | payer BC, SELFPAY ==
[2024-04-04] VITALS (41 sets, daily range): BP systolic 101–157; BP diastolic 53–89; PULSE 69–117; RESP 14–16; TEMP 36.1–36.8; O2SAT 97–100; BMI 35.6
[2024-04-04] MEDS: Lactated Ringers 1,000 ML 50 ML IV (08:10)
[2024-04-04 08:25] LABS: Absolute Lymphocyte Count 1.02 X10^3/uL (0.83-4.51); Absolute Neutrophil Count 5.3 X10^3/uL (2.0-7.7); Basophil# 0.03 X10^3/uL; Basophil% 0.4 % (0-1); Eosinophil# 0.02 X10^3/uL; Eosinophils% 0.3 % (0-5); Hematocrit 32.8 % (37-47); Hemoglobin 10.7 g/dL (12.0-15.0); Lymphocyte # 1.02 X10^3/ul (0.83-4.51); Lymphocyte % 14.4 % (19-41); Mean Corp Hgb Conc 32.6 g/dL (32-36); Mean Corpuscular Hgb 27.2 pg (27.0-32.0); Mean Corpuscular Volume 83.2 fL (81-99); Mean Platelet Vol. 10.4 fl (6.2-12.0); Monocyte# 0.71 X10^3/uL; NRBC Flagged by Analyzer 0 % (0-5); Neutrophil # 5.29 X10^3/uL (2.7-7.7); Neutrophil % 74.5 % (47-70); Platelet Count 195 K/mm3 (150-450); RBC Distribution Width CV 13.6 % (11.6-14.6); RBC Distribution Width SD 40.5 fl (35.1-43.9); Red Blood Count 3.94 M/mm3 (4.2-5.4); White Blood Count 7.1 K/mm3 (4.4-11.0)
[2024-04-04] MEDS: Oxytocin 15 Units/NS 250ml 15 UNITS/250 ML IV.SOLN 2 UNITS IV (08:30)
[2024-04-04] MEDS: Penicillin G Pot 5,000,000 UNITS in 0.9% Normal Saline (100mL MB+) 100 ML 150 UNITS IV (08:45)
[2024-04-04 09:25] LABS: Syphilis Antibodies Non-reactive
--- NOTE | 2024-04-04 09:40 | HP.PCM.OB_ITS ---
HPI - General General Date of Admission: 04/04/24 HPI Narrative JAGDEEP MURPHY, is a 39 F who presents for IOL secondary to AMA and postdates. she denies regluar ctx admits good fm Maternal Data Information JAYDA Calculator Estimated Delivery Date Method Current WG Current Estimate 03/31/24 LMP (Certain) 40w 4d PFSH PFSH Medical History (Updated 04/04/24 @ 09:[address] 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 Rosacea Home Medications ?Medication ?Instructions ?Recorded ?Last Taken ?Type multivitamin no.47-iron fum 27 1 cap PO DAILY 08/25/23 Unknown History mg-folate no.1 1 mg-dha 300 mg capsule (PNV-DHA) Allergy/AdvReac Type Severity Reaction Status Date / Time Sulfa (Sulfonamide Allergy Mild rash Verified 04/04/24 08:03 Antibiotics) Family History Grandmother Pancreatic cancer Myocardial infarction Albinism Grandfather CVA (cerebral vascular accident) Myocardial infarction Sister Thyroid disorder Brother Family history of autism in sibling FH: Down syndrome Surgical History S/P eye surgery S/P tonsillectomy Social History adopted: No household members: spouse and children number of children: 2 current occupational status: unemployed current occupation: [employer] pets and animals: No history of recent travel: Yes (June) out of state: Yes out of country: No sexually active: Yes Smoking Status: Never smoker alcohol intake: never substance use type: does not use well-balanced diet: daily or most days caffeine: Yes Type: coffee Number of servings: 2 eating out: 1-3 times/week during the past year weight has: decreased > 10 lbs what type of physical activity do you participate in: walking frequency: 3-4 times per week conor/taoism: Buddhism seatbelt use: always do you feel safe at home: Yes additional social history: - Asad-Ventrek History 3 Elective abortions Hx Para 2 Spontaneous abortions Hx # Term Pregnancies Ectopic pregnancies Hx # Pregnancies Multiple births # of living children 2 Past Pregnancies Del. Date Name GA/Weeks Outcome Route Bth Weight Infant Gen Labor Lgth Anesthesia Del Locatn Provider FOB Unknown 12/29/20 Gaurav 40 live - full term Male epidur al [facility] JUD 07/25/22 Amisha 40 live - full term Female ep idural [facility] Ashia Gonzales Delivery Date: Last Updated by: Davina Sow RADIOISOTOPE TECHNICIAN, RADIOISOTOPE TECHNICIAN-C pp Fe IV infusion due to anemia Delivery Date: 12/29/20 Last Updated by: Leyla Jolly Perineal Extension/lac, 3rd degree Delivery Date: 07/25/22 Last Updated by: Luanne Medeiros ial sm 40 girl amisha. Visit Details Expected Delivery Route/Plan Labor Preferences- CB/BF classes: [] labor support person: [] labor intervention preferences: whatever is needed pain management options preferred: epidural cut cord/dad catch: [] : [] PP control planned: [] discussed possible routes of delivery and associated risks: [] special requests: [] Plans Covid status: [] Flu vaccine: [] Tdap vaccine: declined Rhogam: na LARC form signed: declined movement and labor precautions reviewed. Problem list reviewed and updated with the most current plan of care details and appropriate orders placed. Relevant counseling for the gestational age provided. Continue routine care and follow up unless otherwise noted in visit notes/problem list details OB Flowsheet Initial Weight: 229 lb Date -?-?-?-?-?-?-?-?-?-?-?-?- EGA Weight BP Urine Prot -?-?-?-?-?-?-?-?-?-?-?-?- Glucose FHR FuHt Pres Dilation -?-?-?-?-?-?-?-?-?-?-?-?- Effaced St Visit Note 09/06/23 -?-?-?-?-?-?-?-?-?-?-?-?- 10w 3d 227 lb 8 oz (-1 lb 8 oz) 110/72 Negative -?-?-?-?-?-?-?-?-?-?-?-?- Negative 170 -?-?-?-?-?-?-?-?-?-?-?-?- MH-No VB. US con firms live IUP in 1 sac and smaller empty sac next to it as was last week. 10/04/23 -?-?-?-?-?-?-?-?-?-?-?-?- 14w 3d 228 lb (-16 oz) 125/87 Negative -?-?-?-?-?-?-?-?-?-?-?-?- Negative 155 -?-?-?-?-?-?-?-?-?-?-?-?- JV- bedside scan showed persistence of empty sac vs uterine synechiae. has mfm appt 10/31/23 10/31/23 -?-?-?-?-?-?-?--?-?-?-?-?- 18w 2d 228 lb (-16 oz) 124/64 Negative -?-?-?-?-?-?-?-?-?-?-?-?- Negative 145 -?-?-?-?-?-?-?-?-?-?-?-?- KW-no vb/lof/ctx . possible flutters. MFM anatomy US today. no concerns 11/29/23 -?-?-?-?-?-?-?-?-?-?-?-?- 22w 3d 233 lb 4 oz (+4 lb 4 oz) 114/69 Negative -?-?-?-?-?-?-?-?-?-?-?-?- Negative 145 -?-?-?-?-?-?-?-?-?-?-?-?- LC-no vb/ctx/lof . occ fm. 12/26/23 -?-?-?-?-?-?-?-?-?-?-?-?- 26w 2d 240 lb (+11 lb) 132/77 Negative -?-?-?-?-?-?-?-?-?-?-?-?- Negative 140 26 -?-?-?-?-?-?-?-?-?-?-?-?- KW- no vb/lof/ct x. good fm. KW- no vb/lof/ctx. good fm. 28 week labs ordered 01/08/24 -?-?-?-?-?-?-?-?-?-?-?-?- 28w 1d 244 lb (+15 lb) 123/66 -?-?-?-?-?-?-?-?-?-?-?-?- 140 30 -?-?-?-?-?-?-?-?-?-?-?-?- SM- no vb lof go od fm no regular ctx 01/22/24 -?-?-?-?-?-?-?-?-?-?-?-?- 30w 1d 246 lb (+17 lb) 113/67 Negative -?-?-?-?-?-?-?-?-?-?-?-?- Negative 140 32 -?-?-?-?-?-?-?-?-?-?-?-?- SM- no vb lof go od fm no SM- no vb lof good fm no reg ular ctx 02/07/24 -?-?-?-?-?-?-?-?-?-?-?-?- 32w 3d 249 lb 6 oz (+20 lb 6 oz) 109/67 Negative -?-?-?-?-?-?-?-?--?-?-?-?- Negative 145 34 -?-?-?-?-?-?-?-?-?-?-?-?- JV- no lof, vagi nal bleeding, or dec FM. Growth scan at 36 weeks is planned. 02/20/24 -?-?-?-?-?-?-?-?-?-?-?-?- 34w 2d 253 lb (+24 lb) 107/72 -?-?-?-?-?-?-?-?-?-?-?-?- 135 35 -?-?-?-?-?-?-?-?-?-?-?-?- SM- no vb lof go od fm no regular ctx 03/06/24 -?-?-?-?-?-?-?-?-?-?-?-?- 36w 3d 257 lb 8 oz (+28 lb 8 oz) 126/77 Negative -?-?-?-?-?-?-?-?-?-?-?-?- Negative 134 37 -?-?-?-?-?-?-?-?-?-?-?-?- JV- nst reactive today no complaints 03/12/24 -?-?-?-?-?-?-?-?-?-?-?-?- 37w 2d 255 lb (+26 lb) 123/82 Negative -?-?-?-?-?-?-?-?-?-?-?-?- Negative 130 37 -?-?-?-?-?-?-?-?-?-?-?-?- KW-no vb/lof/ctx . good fm. Reactive NST. declines vag exam today. 03/18/24 -?-?-?-?-?-?-?-?-?-?-?-?- 38w 1d 257 lb 8 oz (+28 lb 8 oz) 135/81 Negative -?-?-?-?-?-?-?-?-?-?-?-?- Negative 140 38 -?-?-?-?-?-?-?-?-?-?-?-?- JV- reactive NST . no complaints today. declines pelvic exam. 03/26/24 -?-?-?-?-?-?-?-?-?-?-?-?- 39w 2d 259 lb 6 oz (+30 lb 6 oz) 120/69 Negative -?-?-?-?-?-?-?-?-?-?-?-?- Negative 130 39 -?-?-?-?-?-?-?-?-?-?-?-?- KW- no vb/lof/ct x. good fm. NST reactive 04/01/24 -?-?-?-?-?-?-?-?-?-?-?-?- 40w 1d 263 lb 4 oz (+34 lb 4 oz) 112/62 Negative -?-?-?-?-?-?-?-?-?-?-?--?- Negative 130 41 -?-?-?-?-?-?-?-?-?-?-?-?- KW- reactive NST . good fm. no vb/lof/ctx. IOL set up NST FHR Rate Baby A Baseline: 140 Variability:: Moderate Accelerations:: 15 x 15 Decelerations:: None NST Reactive:: Yes FHR Category:: Category I Uterine Activity:: irregular ROS Constitutional Constitutional: Reports systems reviewed and no addt'l complaints, except as documented Eyes Eyes: Denies change in vision ENT HEENT: Reports systems reviewed and no addt'l complaints, except as documented; Denies headache(s) Cardiovascular Cardiovascular: Reports systems reviewed and no addt'l complaints, except as documented; Denies chest pain or dyspnea Respiratory/Chest Respiratory/Chest: Reports systems reviewed and no addt'l complaints, except as documented Gastrointestinal Gastrointestinal: Reports systems reviewed and no addt'l complaints, except as documented; Denies abdominal pain Genitourinary Genitourinary: Reports systems reviewed and no addt'l complaints, except as documented, contractions Details: present (irregular) and movement Details: present; Denies dysuria or genital lesions Musculoskeletal Musculoskeletal: Reports systems reviewed and no addt'l complaints, except as documented Neurologic Neurologic: Reports systems reviewed and no addt'l complaints, except as documented Endocrine Endocrinology: Reports systems reviewed and no addt'l complaints, except as documented Vital Signs Vital Signs Vital Signs: 04/04/24 07:48 04/04/24 07:48 04/04/24 07:48 Temperature Temperature Source Temporal Pulse Rate 93 Respiratory Rate Blood Pressure 140/81 H BP Systolic 140 BP Diastolic 81 Pulse Ox 04/04/24 07:48 04/04/24 07:48 04/04/24 08:50 Temperature 97.6 F L Temperature Source Pulse Rate Respiratory Rate 16 Blood Pressure 140/76 H BP Systolic 140 BP Diastolic 76 Pulse Ox 04/04/24 08:50 04/04/24 08:50 04/04/24 08:50 Temperature Temperature Source Temporal Pulse Rate 88 Respiratory Rate 16 Blood Pressure BP Systolic BP Diastolic Pulse Ox 04/04/24 08:50 04/04/24 08:50 Temperature 98.2 F Temperature Source Pulse Rate Respiratory Rate Blood Pressure BP Systolic BP Diastolic Pulse Ox 99 Weight Weight: 262 lb 6 oz Body Mass Index (BMI) 35.6 Physical Exam Const alert, oriented x3, no apparent distress and healthy appearing HEENT normocephalic and moist oral mucous membranes Head and Scalp: atraumatic Neck full ROM, no lymphadenopathy, supple and thyroid normal General: trachea midline Lymph Lymphatic: no lymphadenopathy noted Chest inspection of chest normal Resp normal respiratory effort Cardio regular rate GI normal to inspection, nondistended, normoactive bowel sounds, soft to palpation and non-tender Inspection: gravid external exam normal Manual OB Exam: estimated gestational size appropriate, presentation cephalic, dilated, effaced and station Extremity normal to inspection General Extremity: Negative for edema Skin no rashes or lesions noted Neuro no focal motor deficits and deep tendon reflexes 2+ bilaterally Motor Exam: strength 5/5 throughout and clonus absent Psych mental status grossly normal Labs Labs Labs: Blood Type O POSITIVE Antibody Screen NEGATIVE Hct 32.8 % (37-47) L Hgb 10.7 g/dL (12.0-15.0) L Obstetrics Ultrasound Syphilis Total Ab Non-reactive Rubella IgG Antibody Reactive (Nonreactive) Hep Bs Antigen Non-Reactive (Nonreactive) Hepatitis C Antibody Non-Reactive (Nonreactive) Chlamydia DNA (ALVARO) Negative (Negative) N.gonorrhoeae DNA (ALVARO) Negative (Negative) HIV 1&2 Antibody Non-Reactive (Nonreactive) Glucose 1 Hr 50 gm 70 mg/dL (70-140) Rhogam given: No Assessment & Plan (1) Obesity (BMI 30.0-34.9): COMMENT: hbga1c with nob. [facility] recommends growth scans q month nsts at 36 weeks weekly (2) Vanishing twin syndrome: COMMENT: repeat us in 1-2 weeks: repeat notes empty and smaller 2nd sac (3) Advanced maternal age (AMA) in : COMMENT: low risk NIPT (4) Hx of pre-eclampsia in prior , currently : COMMENT: baseline labs. (5) Supervision of high-risk : QUALIFIERS: Trimester: first trimester Qualified Code(s): O09.91 - Supervision of high risk , unspecified, first trimester COMMENT: [id number], JAYDA 03/31/24, girl PC Gaurav, Amisha Asad (6) : QUALIFIERS: Weeks of gestation: 39 weeks Qualified Code(s): Z3A .39 - 39 weeks gestation of COMMENT: NIPT: LC=NOB- FHR 171, CRL con with LMP. discussed genetic & carrier testing. anatomy reviewed (7) COVID: COMMENT: Pt states did not test but had fever, body aches and lost taste at Thanksgiving. ASA 81mg daily, growth US @ 32 & 36 wks (8) FH: Down syndrome: COMMENT: Pt Brother- Also has Autism (9) Positive GBS test: COMMENT: in urine. treat in labor (10) Encounter for induction of labor: PLAN: Plan Patient presents IOL, plan management for with pitocin/AROM. Pain management: plans epidural. GBS pos PCN. Management of any complications: ama I have reviewed the PFSH and made any clinically relevant updates.
[2024-04-04] MEDS: Lactated Ringers 1,000 ML 999 ML IV (11:03)
[2024-04-04] MEDS: fentaNYL-bupivacaine (epidural) 100 ML BAG EPIDURAL (12:33)
[2024-04-04] MEDS: Penicillin G 3,000,000 Units 50 ML 100 UNITS IV (12:54)
[2024-04-04] MEDS: Lactated Ringers 1,000 ML 200 ML IV (15:10)
[2024-04-04] MEDS: Ondansetron 4 MG/2 ML Vial IV (15:25)
--- NOTE | 2024-04-04 17:16 | EX.PCM.OBRPT ---
Assessment & Plan (1) Encounter for induction of labor: (2) Obesity (BMI 30.0-34.9): COMMENT: hbga1c with nob. [facility] recommends growth scans q month nsts at 36 weeks weekly (3) Vanishing twin syndrome: COMMENT: repeat us in 1-2 weeks: repeat notes empty and smaller 2nd sac (4) Advanced maternal age (AMA) in : COMMENT: low risk NIPT (5) Hx of pre-eclampsia in prior , currently : COMMENT: baseline labs. (6) Supervision of high-risk : QUALIFIERS: Trimester: first trimester Qualified Code(s): O09.91 - Supervision of high risk , unspecified, first trimester COMMENT: [id number], JAYDA 03/31/24, girl PC Gaurav, Amisha Asad (7) : QUALIFIERS: Weeks of gestation: 39 weeks Qualified Code(s): Z3A.39 - 39 weeks gestation of COMMENT: NIPT: LC=NOB- FHR 171, CRL con with LMP. discussed genetic & carrier testing. anatomy reviewed (8) COVID: COMMENT: Pt states did not test but had fever, body aches and lost taste at Thanksgiving. ASA 81mg daily, growth US @ 32 & 36 wks (9) FH: Down syndrome: COMMENT: Pt Brother- Also has Autism (10) Positive GBS test: COMMENT: in urine. treat in labor (11) Vaginal delivery: COMMENT: SM girl jessica IOL AMA Maternal Data Information JAYDA Calculator Estimated Delivery Date Method Current WG Current Estimate 03/31/24 LMP (Certain) 40w 4d Vaginal Delivery Operative Information Date of Procedure: 04/04/24 Pre-Operative Diagnosis: see a/p diagnoses Post-Operative Diagnosis: same Surgery / Procedure Performed: Spontaneous Vaginal Delivery Type of Anesthesia: Epidural Special Medications: none Estimated Blood Loss: 200 Fluids Replaced: crystalloid Findings Description of Procedure: Patient began pushing and delivered the head in the KAMAR presentation. The head was delivered atraumatically . The anterior and posterior shoulders delivered without complication followed by the rest of the and the was placed on the maternal abdomen. Delayed cord clamping was employed for approximately 60 seconds. Cord was clamped and cut and gentle traction was applied to the cord and the placenta delivered with manual removal immediately following it was noted to be intact except for membranes retaine dwhich were manually removed, betadine prepped in the vagina and betadine wash into the uterine lining, and the placenta seen with three-vessel cord. The perineum and vagina were inspected and noted to have a second degree perineal laceration which was repaired in the usual fashion with 3-0 vicryl rapide. . EBL was 200 cc. Patient and infant tolerated delivery well. Amniotic Fluid Description: Clear Placenta Disposition: [facility] Cord Vessel Description: 3 Vessels Cord Entanglement: None Delayed Cord Clamping: Yes Post Vaginal Delivery Medications Given After Delivery: IV Pitocin Episiotomy Description: None Complication Complications: None Procedures Urinary/Genital [id number]: [id number] Vaginal Delivery [facility]
--- NOTE | 2024-04-04 17:26 | PCM.DC ---
Discharge Instructions Diet Discharge Diet: No restrictions Activity Discharge Activity: Return to Normal Activity, May Not Drive (while taking narcotic pain medications.) and May Shower May resume sexual activity in: 4-6 weeks Dressing / Incision Call your doctor if your incision/area has: Continuous Slow Oozing, Sudden Increased Bleeding, Increased Pain/ Swelling, Increased Redness and Foul Smelling Discharge Follow Up Care Please Follow Up With: Ashia Gonzales MD When: Call [phone] to make an appointment with your doctor in 6 weeks. If you had elevated blood pressure or 4th degree laceration, you will need to be seen in 2 weeks. Test Results: Test results from this visit will be discussed in further detail at your follow-up appointment, if applicable. Discharge Plan Admission Admit Date/Time: 04/04/24 07:29 Attending Provider: Ashia Gonzales Primary Care Provider: Tala Lees NP Discharge Orders/Prescriptions Prescriptions: No Action PNV-DHA 27 mg iron-1 mg -300 mg capsule 1 cap PO DAILY Referrals / Follow Up: Tala Lees NP, [employer] [Primary Care Provider] - Disposition Disposition (needs filled in before D/C Order can be placed): Home, Self Care
[2024-04-04] MEDS: Oxytocin 15 Units/NS 250ml 15 UNITS/250 ML IV.SOLN 83 UNITS IV (17:35)
[2024-04-04] MEDS: Methylergonovine 0.2 MG/ML Ampul IM (19:00)
[2024-04-04] MEDS: Carboprost Tromethamine 250 MCG/ML Ampul IM (19:55)
[2024-04-04] MEDS: Loperamide 2 MG Capsule PO (19:55)
[2024-04-05 00:15] VITALS: BP 124/62; PULSE 83; RESP 16; TEMP 36.1; O2SAT 100
[2024-04-05 03:30] VITALS: BP 126/83; PULSE 96; RESP 14; TEMP 37.2; O2SAT 96
[2024-04-05] MEDS: Naproxen 500 MG Tablet PO (06:19)
--- NOTE | 2024-04-05 08:04 | PN.OBGYN_ITS ---
Subjective Subjective Patient doing well without complaints. Tolerating PO. Ambulating and voiding without difficulty. Feeding well. Denies chest pain, shortness of breath, calf pain/swelling, fevers, chills, lightheadedness. Objective Data Objective Data Vital Signs: Vital Signs Temp Pulse Resp BP Pulse Ox O2 Del Method 99 F 96 14 126/83 H 96 Room Air 04/05/24 03:30 04/05/24 03:30 04/05/24 03:30 04/05/24 03:30 04/05/24 03:30 04/05/24 03:30 Oxygen Delivery Method Room Air Weight: 262 lb 6 oz Body Mass Index (BMI) 35.6 Intake & Output: Intake and Output for Last 24 Hours 04/03/24 04/04/24 04/05/24 23:59 23:59 23:59 Intake Total 2928.34 / 2928.34 Output Total 2200 / 2200 Balance 728.34 / 728.34 Lab / Micro Data Attestation: I reviewed the patient's lab results. 04/04/24 08:10 Labs: Laboratory Results - last 24 hr 04/04/24 08:10: WBC 7.1, RBC 3.94 L, Hgb 10.7 L, Hct 32.8 L, MCV 83.2, MCH 27.2, MCHC 32.6, RDW Std Deviation 40.5, RDW Coeff of Nic 13.6, Plt Count 195, MPV 10.4, Immature Gran % (Auto) 0.400, Neut % (Auto) 74.5 H, Lymph % (Auto) 14.4 L, Sandoval % (Auto) 10.0, Eos % (Auto) 0.3, Baso % (Auto) 0.4, Absolute Neuts (auto) 5.3, Absolute Lymphs (auto) 1.02, Nucleated RBC % 0, Syphilis Total Ab Non- reactive, Blood Type O POSITIVE, Antibody Screen NEGATIVE ROS Constitutional Constitutional: Reports systems reviewed and no addt'l complaints, except as documented; Denies anorexia or headache(s) Cardiovascular Cardiovascular: Reports systems reviewed and no addt'l complaints, except as documented; Denies dizziness, dyspnea, nausea or tachypnea Respiratory/Chest Respiratory/Chest: Reports systems reviewed and no addt'l complaints, except as documented; Denies cough, dyspnea, shortness of breath at rest or tachypnea Gastrointestinal Gastrointestinal: Reports systems reviewed and no addt'l complaints, except as documented; Denies abdominal pain, constipation or nausea Genitourinary Genitourinary: Reports systems reviewed and no addt'l complaints, except as documented; Denies burning urination, difficulty urinating, dysuria, urinary frequency or urinary incontinence Musculoskeletal Musculoskeletal: Reports systems reviewed and no addt'l complaints, except as documented Integumentary Integumentary: Reports systems reviewed and no addt'l complaints, except as documented Neurologic Neurologic: Reports systems reviewed and no addt'l complaints, except as documented; Denies abnormal speech, dizziness or headache(s) Psychiatric Psychiatric: Reports systems reviewed and no addt'l complaints, except as documented Endocrine Endocrinology: Reports systems reviewed and no addt'l complaints, except as documented Hematologic/Lymphatic Hematologic/Lymphatic: Reports systems reviewed and no addt'l complaints, except as documented Physical Exam Const alert, oriented x3 and no apparent distress Neck full ROM Resp normal respiratory effort, normal air movement and no retractions Effort and Inspection: able to speak in complete sentences and symmetric chest movement GI soft to palpation Bladder / Kidney Exam: bladder normal to palpation Uterus Palpation: uterus fundus firm Extremity normal to inspection and full ROM Psych mental status grossly normal, thought process normal and cooperative Assessment & Plan (1) Vaginal delivery: COMMENT: SM girl jessica IOL AMA PLAN: s/p PPD # 1 1. routine post delivery care 2. breast feeding- support given 3. rh positive 4. rubella immune 5. Discharge home (2) Encounter for induction of labor: (3) Obesity (BMI 30.0-34.9): COMMENT: hbga1c with nob. mfm recommends growth scans q month nsts at 36 weeks weekly (4) Vanishing twin syndrome: COMMENT: repeat us in 1-2 weeks: repeat notes empty and smaller 2nd sac (5) Advanced maternal age (AMA) in : COMMENT: low risk NIPT (6) Hx of pre-eclampsia in prior , currently : COMMENT: baseline labs. (7) Supervision of high-risk : QUALIFIERS: Trimester: first trimester Qualified Code(s): O09.91 - Supervision of high risk , unspecified, first trimester COMMENT: [id number], JAYDA 03/31/24, girl PC Amisha Nolasco Asad (8) : QUALIFIERS: Weeks of gestation: 39 weeks Qualified Code(s): Z 3A.39 - 39 weeks gestation of COMMENT: NIPT: LC=NOB- FHR 171, CRL con with LMP. discussed genetic & carrier testing. anatomy reviewed (9) COVID: COMMENT: Pt states did not test but had fever, body aches and lost taste at Thanksgiving. ASA 81mg daily, growth US @ 32 & 36 wks (10) FH: Down syndrome: COMMENT: Pt Brother- Also has Autism (11) Positive GBS test: COMMENT: in urine. treat in labor Charges/Coding Multi Select Codes Urinary/Genital Urinary/Genital CPT Codes: No Charge
[2024-04-05 08:34] VITALS: BP 131/86; PULSE 92; RESP 18; TEMP 36.6; O2SAT 98
[2024-04-05 12:12] VITALS: BP 121/68; PULSE 91; RESP 17; TEMP 36.7; O2SAT 95
[2024-04-05] MEDS: Acetaminophen 500 MG Tablet 1000 MG PO (12:15)
[2024-04-05 17:55] VITALS: BP 126/87; PULSE 71; RESP 17; TEMP 36.6; O2SAT 97
== END 2024-04-05 18:30 | disposition home or self-care (01) | DRG 807 ==
PROVIDERS: Admitting Provider Obstetrics & Gynecology; PCP Nurse Practitioner Primary Care; Referring Provider Obstetrics & Gynecology; Visit Provider Obstetrics & Gynecology
DX: O99.824 Streptococcus B carrier state complicating childbirth (principal); Z37.0 Single live birth; O31.23X0 Continuing pregnancy after intrauterine death of one fetus or more, third trimester, not applicable or unspecified; O99.214 Obesity complicating childbirth; O73.1 Retained portions of placenta and membranes, without hemorrhage; O70.1 Second degree perineal laceration during delivery; Z3A.39 39 weeks gestation of pregnancy; Z86.16 Personal history of COVID-19
CPT/HCPCS: 59025; 59050; 85025; 86780; 86850; 86900; 86901; 99221; J7120; G0378; J2405

== ENCOUNTER → 2024-05-16 | Outpatient (CLI) | payer BC, SELFPAY ==
[2024-05-21 08:11] LABS: HPV APTIMA, High Risk Negative (Negative)
== END | disposition home or self-care (01) ==
LOC: LABSPEC 11:57
PROVIDERS: PCP Nurse Practitioner Primary Care; Referring Provider Advanced Practice Midwife; Visit Provider Advanced Practice Midwife
DX: Z12.4 Encounter for screening for malignant neoplasm of cervix (principal)
CPT/HCPCS: 87624; 88175; G0145